=== PATIENT | female | born 1995 | race Caucasian/White ===

== ENCOUNTER 2022-02-26 15:50 | Emergency (ER) | payer BC, SELFPAY ==
[2022-02-26 16:01] VITALS: BP 129/88; PULSE 92; RESP 18; TEMP 36.5; O2SAT 98
--- NOTE | 2022-02-26 16:01 | ED.URI ---
HPI - URI/Sore Throat General Chief Complaint: Upper Respiratory Infection Stated Complaint: Sore Throat Time Seen by Provider: 02/26/22 16:01 History of Present Illness HPI Narrative: Alona Miranda is a 26 yo female with no PMH comes to visit with sore throat for the last few days. She states that she went from feeling practically fine to feel like she is swallowing needles and then 1 afternoon her brother has strep and has not been taking his medication regularly. She rates her pain as an 8 out of 10 should has unknown fever, no nausea vomiting or diarrhea Related Data Allergies Allergy/AdvReac Type Severity Reaction Status Date / Time amoxicillin AdvReac Mild Gastrointestinal Verified 02/26/22 16:15 Upset IV DYE ? Allergy Severe Anaphylactic Uncoded 02/26/22 15:56 Shock SHELLFISH Allergy Severe Anaphylactic Uncoded 02/26/22 15:56 Shock Review of Systems Review of Systems: CONSTITUTIONAL: Denies fever, chills, sweats. EYES: Denies visual changes, redness, discharge. ENT: Denies rhinorrhea, congestion, has sore throat, otalgia. CARDIOVASCULAR: Denies chest pain, palpitations, edema. RESPIRATORY: Denies dyspnea, wheezing, cough GASTROINTESTINAL: Denies abdominal pain, nausea, vomiting, diarrhea. GENITOURINARY: Denies dysuria, hematuria, abnormal discharge SKIN: Denies rash or itching. NEUROLOGIC: Denies numbness, or focal weakness. PSYCHIATRIC: Denies anxiety or depression. PMFSH Comments At time of signature, I agree with nursing past medical, surgical, social and family history. There is no relevant family history pertinent to the presenting complaint. Exam Narrative: GENERAL: This is a well-nourished, well-developed patient, in mild distress. HEAD: normocephalic, atraumatic. EYES:. Sclera clear/white. Vision is grossly intact. EARS: External ears normal, auditory canals clear and without drainage, TMs normal without perforation. Hearing grossly intact. NOSE: External nose normal without nasal discharge, nares without redness, no rhinorrhea. THROAT: Mucous membranes moist, posterior pharynx erythema with no noted exudate NECK: Neck supple, non-tender CARDIOVASCULAR: Regular rate and rhythm without murmurs, gallops, or rubs. RESPIRATORY: Clear to auscultation. Breath sounds equal bilaterally. No wheezes, rales, or rhonchi. GASTROINTESTINAL: Not done SKIN: warm, intact with no suspicious lesions or rash, good texture and turgor. NEURO: awake, alert, and oriented to person, place and time. There were no obvious focal neurologic abnormalities. Steady gait EXTREMITIES: Normal range of motion. BACK: Nontender without deformity Course Course Emergency Course: Patient comes a sore throat, unknown fever so transition from being okay to feeling she swallowing needles Strep test done-negative and sent for culture Because brother has strep and she is in the same household and going to treat with Zithromax as she had an adverse reaction to amoxicillin in June Level of Care: Express Care Visit Vital Signs Vital signs: Vital Signs Temperature 97.7 F 02/26/22 16:01 Pulse Rate 92 02/26/22 16:01 Respiratory Rate 18 02/26/22 16:01 Blood Pressure 129/88 02/26/22 16:01 Pulse Oximetry 98 02/26/22 16:01 Oxygen Delivery Room Air 02/26/22 16:01 Temperature 97.7 F 02/26/22 16:01 Pulse Rate 92 02/26/22 16:01 Respiratory Rate 18 02/26/22 16:01 Blood Pressure 129/88 02/26/22 16:01 Pulse Oximetry 98 02/26/22 16:01 Oxygen Delivery Room Air 02/26/22 16:01 MDM - URI/Sore Throat Differential Diagnosis Differential diagnosis: Likely upper respiratory infection, viral infection, bronchitis, pharyngitis and other Lab Data Labs: Strep Screen Presumptive Negative *(Reference Range: Negative)* Critical Care Time Critical Care Time Critical Care Time: No Discharge Plan Discharge Clinical Impression: Pharyng
== END 2022-02-26 16:25 | disposition home or self-care (01) ==
PROVIDERS: Emergency Provider Nurse Practitioner
DX: J02.9 Acute pharyngitis, unspecified (principal); Z86.16 Personal history of COVID-19
CPT/HCPCS: 87081; 87880; 99213; G0463

== ENCOUNTER 2022-07-20 09:36 | Emergency (ER) | payer BC, SELFPAY ==
[2022-07-20 09:47] VITALS: BP 119/71; PULSE 70; RESP 18; TEMP 36.8; O2SAT 100
--- NOTE | 2022-07-20 10:26 | ED.FEMALEGU ---
HPI - Female Genitourinary General Chief complaint: Urogenital-Female Stated complaint: Possible UTI Source: patient Mode of arrival: ambulatory Limitations: no limitations History of Present Illness HPI Narrative: 26-year-old female presents to [facility] with complaints of burning and frequency with urination, decreased urinary flow and lower abdominal cramping for the past day. Patient reports that she has been increasing her water intake with little relief. Patient denies vaginal discharge. Patient reports that she has had 2 recent new sexual partners, 1 was unprotected. Patient denies history of STDs. Patient has fever, body aches, chills, nausea, vomiting, diarrhea or flank pain. Patient denies history of UTIs. LMP 06/28/2022 MD elicited complaint: dysuria Onset (ago): day(s) (1) Vaginal discharge: none Vaginal bleeding: none Urinary symptoms: Dysuria and Frequency Exacerbating factors: urination Sexual activity: Yes and New Sexual Partners Related Data Allergies Allergy/AdvReac Type Severity Reaction Status Date / Time amoxicillin AdvReac Mild Gastrointestinal Verified 07/20/22 09:51 Upset IV DYE ? Allergy Severe Anaphylactic Uncoded 07/20/22 09:51 Shock SHELLFISH Allergy Severe Anaphylactic Uncoded 07/20/22 09:51 Shock Review of Systems Constitutional: Constitutional: Denies chills and Denies fatigue ENT: Denies vertigo, Denies dizziness, Denies epistaxis, Denies nasal congestion and Denies sore throat Cardiovascular: Cardiovascular: Denies chest pain Respiratory: Respiratory: Denies chest congestion, Denies cough, Denies dyspnea and Denies wheezing Gastrointestinal: Gastrointestinal: Denies diarrhea, Denies nausea and Denies vomiting Genitourinary: Genitourinary: Denies abnormal vaginal bleeding, Reports nocturia, Reports dysuria, Reports pelvic pain, Denies flank pain, Denies urinary incontinence and Denies vaginal discharge Integumentary/Breasts: Skin/Breast: Denies rash Neurologic: Denies vertigo and Denies dizziness PMFSH Comments At time of signature, I agree with nursing past medical, surgical, social and family history. There is no relevant family history pertinent to the presenting complaint. Exam Const: General: healthy appearing, no acute distress and alert Nutritional Appearance: well nourished and obese Orientation/consciousness: patient oriented x3 Limitations: no limitations HENMT: Head: normal to inspection Throat: posterior oropharynx normal and uvula midline Eyes: Conjunctivae: conjunctivae normal Neck: Neck: normal visual inspection Resp: Effort & Inspection: normal respiratory effort and not labored Auscultation: clear to auscultation bilaterally, no crackles, no rales and no rhonchi Cardio: Rate: regular rate Rhythm: regular rhythm Heart sounds: no murmurs GI: Inspection: non-distended GI Palp: Yes Soft to palpation, No Tenderness to palpation present (GI), No Guarding due to palpation present (GI) and No Rigid due to palpation Auscultation: normal bowel sounds : General: Yes bladder normal to palpation and Yes no CVA tenderness Other: vaginal exam deferred Back/Spine/Pelvis: Back: no CVA tenderness Skin: General skin exam: normal color Rashes: no rashes Neuro: General: patient oriented x3 Speech: normal speech Psych: Affect: normal affect Attitude: cooperative Course Course Level of Care: Express Care Visit Vital Signs Vital signs: Vital Signs Temperature 36.8 C 07/20/22 09:47 Pulse Rate 70 07/20/22 09:47 Respiratory Rate 18 07/20/22 09:47 Blood Pressure 119/71 07/20/22 09:47 Pulse Oximetry 100 07/20/22 09:47 Oxygen Delivery Room Air 07/20/22 09:47 Temperature 36.8 C 07/20/22 09:47 Pulse Rate 70 07/20/22 09:47 Respiratory Rate 18 07/20/22 09:47 Blood Pressure 119/71 07/20/22 09:47 Pulse Oximetry 100 07/20/22 09:47 Oxygen Delivery Room Air 07/20/22 09:47 MDM - Female Genitourina
[2022-07-20] MEDS: LIDOCAINE HCL 1% LOCAL INJ 2 ML AMPUL 1.8 ML INFILTRATE (11:08)
[2022-07-20] MEDS: cefTRIAXone 500 MG VIAL IM (11:10)
== END 2022-07-20 11:00 | disposition home or self-care (01) ==
PROVIDERS: Emergency Provider Nurse Practitioner Family
DX: R30.0 Dysuria (principal); Z72.51 High risk heterosexual behavior; Z86.16 Personal history of COVID-19
CPT/HCPCS: 81003; 81025; 87086; 87491; 87591; 87661; 96372; 99214; G0463; J0696

== ENCOUNTER 2022-09-15 08:10 | Emergency (ER) | payer BC, SELFPAY ==
[2022-09-15 08:21] VITALS: BP 133/88; PULSE 76; RESP 20; TEMP 36.4; O2SAT 100
--- NOTE | 2022-09-15 08:50 | ED.URI ---
HPI - URI/Sore Throat General Chief Complaint: Upper Respiratory Infection Stated Complaint: Cough,Congestion Source: patient Mode of arrival: ambulatory Limitations: no limitations History of Present Illness HPI Narrative: 26-year-old female presents to [facility] with complaints of white patches on her tonsils and throat irritation for the past 2 days. Patient reports that she has history of tonsil stones. Patient reports that she also is concerned about a possible UTI or STD. Patient reports that she has had unprotected intercourse with new partners over the past few weeks, last partner was 2 days ago. Patient is not on control. Patient reports that she is scheduled to see her OBGYN and will have full STD testing at that time in a few weeks. Patient denies history of STDs. Patient denies vaginal discharge, abdominal pain, back pain, fever, body aches, chills, nausea, vomiting or diarrhea MD elicited complaint: sore throat Onset (ago): day(s) (2) Able to tolerate fluids by mouth: Yes Exacerbating factors: nothing Relieving factors: nothing Related Data Allergies Allergy/AdvReac Type Severity Reaction Status Date / Time amoxicillin AdvReac Mild Gastrointestinal Verified 07/20/22 09:51 Upset IV DYE ? Allergy Severe Anaphylactic Uncoded 07/20/22 09:51 Shock SHELLFISH Allergy Severe Anaphylactic Uncoded 07/20/22 09:51 Shock Review of Systems Constitutional: Constitutional: Reports chills, Reports fatigue, Reports fever(s) and Reports weakness ENT: Denies vertigo, Denies dizziness, Denies epistaxis, Denies nasal congestion and Reports sore throat Respiratory: Respiratory: Denies chest congestion, Denies cough, Denies dyspnea and Denies wheezing Gastrointestinal: Gastrointestinal: Denies heartburn, Denies diarrhea, Denies nausea and Denies vomiting Genitourinary: Genitourinary: Denies abnormal vaginal bleeding, Denies hematuria, Denies nocturia, Denies genital lesions, Reports dysuria, Denies pelvic pain, Denies flank pain, Denies urinary incontinence and Denies vaginal discharge Integumentary/Breasts: Skin/Breast: Denies rash Neurologic: Denies vertigo, Denies dizziness, Denies syncope and Denies headache(s) PMFSH Comments At time of signature, I agree with nursing past medical, surgical, social and family history. There is no relevant family history pertinent to the presenting complaint. Exam Const: General: healthy appearing and no acute distress Nutritional Appearance: well nourished Orientation/consciousness: patient oriented x3 Limitations: no limitations and No altered mental status HENMT: Head: normal to inspection Ears: external ears normal, TM's normal bilaterally and EAC's normal Face/Nose/Sinus: Normal external nose present and Normal nares present Face and sinus: normal facial exam Mouth: Yes Normal oral and palatal mucosa present Teeth and gingiva: dentition normal Throat: uvula midline Other: Mild erythema noted to posterior pharynx; no exudate or peritonsillar abscess noted Eyes: Conjunctivae: conjunctivae normal Neck: Neck: normal visual inspection Resp: Effort & Inspection: normal respiratory effort and not labored Auscultation: clear to auscultation bilaterally, no crackles, no rales, no rhonchi and no wheezes Cardio: Rate: regular rate Rhythm: regular rhythm Heart sounds: no murmurs GI: Inspection: non-distended GI Palp: Yes Soft to palpation, No Tenderness to palpation present (GI), No Guarding due to palpation present (GI) and No Rigid due to palpation Auscultation: normal bowel sounds : General: Yes bladder normal to palpation Back/Spine/Pelvis: Back: no CVA tenderness Skin: General skin exam: normal color Rashes: no rashes Neuro: General: patient oriented x3 Speech: normal speech Psych: Affect: normal affect Attitude: cooperative Course Course Level of Care: Express Care Visit Vital Signs Vital signs: Vital Signs Temperature 36.4 C 09/15
== END 2022-09-15 09:20 | disposition home or self-care (01) ==
PROVIDERS: Emergency Provider Nurse Practitioner Family
DX: A74.9 Chlamydial infection, unspecified (principal); R30.0 Dysuria; J02.9 Acute pharyngitis, unspecified; R05.9 Cough, unspecified
CPT/HCPCS: 81003; 81025; 87081; 87086; 87491; 87591; 87661; 87880; 99214; G0463

== ENCOUNTER 2022-10-15 14:07 | Emergency (ER) | payer BC, SELFPAY ==
[2022-10-15 14:20] VITALS: BP 113/60; PULSE 59; RESP 16; TEMP 36.2; O2SAT 99
--- NOTE | 2022-10-15 14:35 | ED.URI ---
HPI - URI/Sore Throat General Chief Complaint: Upper Respiratory Infection <Olga Broderick NP - Last Filed: 10/18/22 10:26> Stated Complaint: sorethroat <Olga Broderick NP - Last Filed: 10/18/22 10:26> Time Seen by Provider: 10/15/22 14:25 <Olga Broderick NP - Last Filed: 10/18/22 10:26> Source: patient, RN notes reviewed and old records reviewed <Olga Broderick NP - Last Filed: 10/18/22 10:26> Mode of arrival: ambulatory <Olga Broderick NP - Last Filed: 10/18/22 10:26> Limitations: no limitations <Olga Broderick NP - Last Filed: 10/18/22 10:26> History of Present Illness HPI Narrative: 27 year old female who presents to express care with complaints of sore throat with white patches on tonsils noted. Patient reports that she was treated for Chlamydia recently and wonders if she is reinfected in her throat with chlamydia due to having oral sex. Patient requesting oral swab sent for Chlamydia. Patient reports that she has 2 friends with benefits at this time and throat get irritated when she does deep oral sex. Patient reports that she has appointment with ENT on the of this month. Patient denies any fevers. <Olga Broderick NP - Last Filed: 10/18/22 10:26> MD elicited complaint: sore throat <Olga Broderick NP - Last Filed: 10/18/22 10:26> Pertinent past history: other (treated on 09/15/2022 for Chlamydia) <Olga Broderick NP - Last Filed: 10/18/22 10:26> Onset (ago): day(s) (2) <Olga Broderick NP - Last Filed: 10/18/22 10:26> Pain scale (0-10): 3 <VINCE Beltran Last Filed: 10/18/22 10:26> Able to tolerate fluids by mouth: Yes <Olga Broderick NP - Last Filed: 10/18/22 10:26> Related Data Allergies/Adverse Reactions: Allergies Allergy/AdvReac Type Severity Reaction Status Date / Time amoxicillin AdvReac Mild Gastrointestinal Verified 10/15/22 14:36 Upset IV DYE ? Allergy Severe Anaphylactic Uncoded 10/15/22 14:36 Shock SHELLFISH Allergy Severe Anaphylactic Uncoded 10/15/22 14:36 Shock <Olga Broderick NP - Last Filed: 10/18/22 10:26> Review of Systems Review of Systems: CONSTITUTIONAL: Denies malaise, chills, sweats, or fever. EYES: Denies visual changes, redness, or discharge. ENT: Reports rhinorrhea, congestion, sinus pain,no otalgia positive for sore throat. CARDIOVASCULAR: Denies chest pain, palpitations, or edema. RESPIRATORY: Reports cough.? Denies dyspnea. GASTROINTESTINAL: Denies abdominal pain, nausea, vomiting, diarrhea SKIN: Denies rash or itching. MUSCULOSKELETAL: Denies myalgia. NEUROLOGIC: Denies headache. <Olga Broderick NP - Last Filed: 10/18/22 10:26> All systems reviewed & are unremarkable except as noted in HPI and below <Olga Broderick NP - Last Filed: 10/18/22 10:26> PMFSH Comments At time of signature, agree with nursing past medical, surgical, social and family history. There is no relevant family history pertinent to the presenting complaint <Olga Broderick NP - Last Filed: 10/18/22 10:26> Exam Narrative: GENERAL: Well-appearing, well-nourished, and in no acute distress. HEAD: Normocephalic EYES: PERRLA, conjunctivae clear ENT: Nares clear, turbinates edematous and erythematous, clear discharge. Mucous membranes moist. TM pearly gregory with dull light reflex bilaterally; no tragal tenderness. Oropharynx erythematous without lesions. Tonsils red enlarged and with exudates, appears as some tonsil stones, no drooling, no hoarseness, no trismus, uvula midline. NECK: Supple. No lymphadenopathy CHEST: Clear to auscultation, breath sounds equal. No wheezing, rhonchi, rales, or stridor. No respiratory distress, speaks in full sentences.SAO2 99% on room air HEART: Regular rate and rhythm. No murmur heard. SKIN: Warm, dry, no rash. NEURO: Alert and oriented x3. PSYCH: Normal mood and affect <Olga Broderick
[2022-10-20 09:12] LABS: Reference Lab Test Result Not Detected
== END 2022-10-15 15:44 | disposition home or self-care (01) ==
PROVIDERS: Emergency Provider Registered Nurse
DX: J02.0 Streptococcal pharyngitis (principal)
CPT/HCPCS: 36415; 87081; 87147; 87491; 87880; 99213; G0463

== ENCOUNTER 2022-10-16 13:02 | Emergency (ER) | payer BC, SELFPAY ==
--- NOTE | 2022-10-16 13:14 | ED.FEMALEGU ---
HPI - Female Genitourinary General Chief complaint: Urogenital-Female Stated complaint: Female Urogenital Time Seen by Provider: 10/16/22 13:15 Source: patient Mode of arrival: ambulatory Limitations: no limitations History of Present Illness HPI Narrative: Patient is a 27-year-old female that presents with vaginal burning with urination. Patient had menstrual cycle end 1 week ago. States she had sex on Thursday and noticed vaginal irritation after. Treated herself with Monistat for 3 days, ending on Thursday. States it does not burn her urethra when she pees but marques her external labia. was seen yesterday, Thursday, for sore throat and white patches on throat. Chlamydial throat culture sent, results not back. Patient was seen 09/15 for STD exposure. Waited for results to come back and was then treated for chlamydia with doxycycline 09/18. States she finished entire course of antibiotics. Patient states another partner told her he was positive for chlamydia this week. When like treatment for chlamydia but culture sent off for gonorrhea and Trichomonas as well. Related Data Allergies Allergy/AdvReac Type Severity Reaction Status Date / Time amoxicillin AdvReac Mild Gastrointestinal Verified 10/15/22 14:36 Upset IV DYE ? Allergy Severe Anaphylactic Uncoded 10/15/22 14:36 Shock SHELLFISH Allergy Severe Anaphylactic Uncoded 10/15/22 14:36 Shock Review of Systems Review of Systems: All systems reviewed & are unremarkable except as noted in HPI and below Constitutional: Constitutional: Denies chills, Denies fever(s), Denies headache(s), Denies malaise and Denies weakness Eyes: Eyes: Denies change in vision, Denies eye discharge and Denies irritation ENT: Denies otalgia, Denies headache(s), Denies nasal congestion, Denies nasal discharge, Denies sinus pain and Denies sore throat Cardiovascular: Cardiovascular: Denies chest pain, Denies edema, Denies palpitations and Denies dyspnea Respiratory: Respiratory: Denies cough and Denies dyspnea Gastrointestinal: Gastrointestinal: Denies abdominal pain, Denies diarrhea, Denies nausea and Denies vomiting Genitourinary: Genitourinary: Denies hematuria, Denies dysuria, Denies flank pain, Denies urinary urgency, Reports vaginal discharge, Reports vaginal odor and Reports vaginal pruritus Musculoskeletal: Musculoskeletal: Denies back pain and Denies numbness Integumentary/Breasts: Skin/Breast: Denies pruritus and Denies rash Neurologic: Denies headache(s), Denies numbness and Denies weakness Psychiatric: Psychiatric: Reports no additional psychiatric complaints Endocrine: Endocrine: Denies palpitations PMFSH Comments At time of signature, agree with nursing past medical, surgical, social and family history. There is no relevant family history pertinent to the presenting complaint. Exam Const: General: cooperative, healthy appearing, comfortable, no acute distress and well nourished Nutritional Appearance: well nourished Orientation/consciousness: patient oriented x3 HENMT: Head: normocephalic and atraumatic Ears: external ears normal Face/Nose/Sinus: Normal external nose present, Normal nares present and normal facial exam Face and sinus: normal facial exam Eyes: General: appearance normal, both eyes and all related structures Pupils: Equal, round and reactive pupils present EOM: EOMs intact bilaterally Neck: Neck: normal visual inspection, full ROM and supple Chest: Chest palpation & inspection: normal inspection of the chest Resp: Effort & Inspection: normal respiratory effort and able to speak in complete sentences Cardio: Rate: regular rate Rhythm: regular rhythm GI: Inspection: normal to inspection GI Palp: No abdominal tenderness and Yes Soft to palpation : General: Yes no CVA tenderness OB/external & speculum: Deferred OB/external & speculum exam Manual OB Exam: Deferred manual OB exam Other: Patient defers vaginal exam. States she would ju
[2022-10-16 13:20] VITALS: BP 131/78; PULSE 87; RESP 20; TEMP 36.2; O2SAT 99
== END 2022-10-16 13:44 | disposition home or self-care (01) ==
PROVIDERS: Emergency Provider Nurse Practitioner Family
DX: N89.8 Other specified noninflammatory disorders of vagina (principal); R10.2 Pelvic and perineal pain
CPT/HCPCS: 81003; 87491; 87591; 87661; 99213; G0463

== ENCOUNTER 2022-11-16 18:36 | Emergency (ER) | payer BC, SELFPAY ==
[2022-11-16 18:48] VITALS: BP 133/84; PULSE 100; RESP 16; TEMP 36.4; O2SAT 100
--- NOTE | 2022-11-16 19:12 | ED.GENADULT ---
HPI - General Adult General Chief complaint: Unspecified Stated complaint: Female Urogenital Time Seen by Provider: 11/16/22 18:55 Source: patient and RN notes reviewed Mode of arrival: ambulatory Limitations: no limitations History of Present Illness HPI narrative: Patient presents today reporting lower abdominal cramping since last night. States she is 5-6 weeks with LMP at 10/06/2022. Denies bleeding or vaginal discharge. She currently rates her cramping 09/05. She also states that she was notified today that 1 of her to recent sexual partners has recently tested positive for gonorrhea and she was hoping to get tested. Related Data Allergies Allergy/AdvReac Type Severity Reaction Status Date / Time amoxicillin AdvReac Mild Gastrointestinal Verified 11/16/22 18:50 Upset IV DYE ? Allergy Severe Anaphylactic Uncoded 11/16/22 18:51 Shock SHELLFISH Allergy Severe Anaphylactic Uncoded 11/16/22 18:51 Shock Review of Systems Review of Systems: CONSTITUTIONAL: Denies body aches, fever, chills, or sweats. EYES: Denies visual changes, redness, or discharge. ENT: Denies rhinorrhea, congestion, sore throat, or otalgia. CARDIOVASCULAR: Denies chest pain, palpitations, or edema. RESPIRATORY: Denies cough or dyspnea. GASTROINTESTINAL: Denies nausea, vomiting, or diarrhea.+ lower abdominal cramping GENITOURINARY: Denies dysuria or hematuria. SKIN: Denies rash, itching, or wounds. MUSCULOSKELETAL: Denies back pain, joint pain, or myalgia. NEUROLOGIC: Denies headache, numbness, tingling, or weakness. PSYCH: Denies depression or anxiety. PMFSH Comments At time of signature, I have reviewed and agree with nursing past medical, surgical, social and family history unless otherwise noted. Please see nursing chart for further information. There is no relevant family history pertinent to the presenting complaint Exam Narrative: GENERAL: Well-appearing, well-nourished, and in no acute distress. HEAD: Normocephalic, atraumatic. EYES: EOMI. No redness or drainage. Conjunctivae normal. ENT: Mucous membranes pink and moist. NECK: Normal AROM. CHEST: No respiratory distress. Clear to auscultation. HEART: Regular rate and rhythm. No murmur appreciated. Normal peripheral pulses. ABDOMEN: Soft, nontender, nondistended, normal active bowel sounds. MUSCULOSKELETAL: No bony tenderness. EXTREMITIES: Normal range of motion. No edema. SKIN: Warm, dry, no rash. Capillary refill normal. Normal skin turgor. NEURO: No focal deficits. Alert and oriented x3. Gait steady. PSYCH: Normal affect. No signs of depression or anxiety. Course Course Emergency Course: 1915-discussed with patient that it is recommended that she go to the ER for further evaluation of her lower abdominal cramping. Patient then confessed that she lied about having abdominal cramping because she thought we could provide her with an ultrasound while she was here at Urgent Care getting STI testing here today. She is unsure who the father of her baby is and wanted a precise EDC so she could narrow it down to 1 man. Since she cannot get an ultrasound here to urgent care and is not having cramping, she would still like to get tested and treated for gonorrhea. Sample obtained. Level of Care: Express Care Visit Vital Signs Vital signs: Vital Signs Temperature 97.5 F L 11/16/22 18:48 Pulse Rate 100 11/16/22 18:48 Respiratory Rate 16 11/16/22 18:48 Blood Pressure 133/84 11/16/22 18:48 Pulse Oximetry 100 11/16/22 18:48 Oxygen Delivery Room Air 11/16/22 18:48 Temperature 97.5 F L 11/16/22 18:48 Pulse Rate 100 11/16/22 18:48 Respiratory Rate 16 11/16/22 18:48 Blood Pressure 133/84 11/16/22 18:48 Pulse Oximetry 100 11/16/22 18:48 Oxygen Delivery Room Air 11/16/22 18:48 Reviewed. Pt has been instructed to follow up with her PCP regarding her elevated blood pressure today. Medical Decision Making MDM Narrat
--- NOTE | 2022-11-16 19:13 | PC.NURSE ---
PT REPORTS TO HOME THERAPY CLINICIAN THAT SHE LIED ABOUT ABD CRAMPING TO GET AN ULTRASOUND, PT REPORTS SHE WOULD LIKE TO BE TREATED AND TESTED HERE FOR STI INSTEAD OF GOING TO THE ER. PT IS AWARE THAT COMPLICATIONS TO WITHOUT GOING TO ER FOR FURTHER EVALUATION MAY OCCUR IN [place]. PT STATES SHE IS NOT HAVING ANY PAIN AND WOULD LIKE TO JUST BE TREATED FOR STI.
[2022-11-16] MEDS: cefTRIAXone 500 MG, LIDOCAINE HCL 1% LOCAL INJ 1 ML IM (19:32)
[2022-11-16 19:39] VITALS: BP 130/78; PULSE 88; RESP 16; O2SAT 99
== END 2022-11-16 19:45 | disposition home or self-care (01) ==
PROVIDERS: Emergency Provider Nurse Practitioner
DX: O26.891 Other specified pregnancy related conditions, first trimester (principal); R10.30 Lower abdominal pain, unspecified; Z20.2 Contact with and (suspected) exposure to infections with a predominantly sexual mode of transmission; Z3A.01 Less than 8 weeks gestation of pregnancy
CPT/HCPCS: 87491; 87591; 96372; 99214; G0463; J0696

== ENCOUNTER 2024-10-30 11:36 | Emergency (ER) | payer BC, SELFPAY ==
--- NOTE | 2024-10-30 11:37 | ED_ITS ---
HPI - General Adult General Chief complaint: Nausea/Vomiting/Diarrhea Stated complaint: nausea Time Seen by Provider: 10/30/24 11:37 Source: patient Mode of arrival: ambulatory Limitations: no limitations History of Present Illness HPI narrative: 29-year-old female patient presents to [facility] with complaints of ongoing nausea. Patient states she had some kind of stomach flu/ virus on October 14 and states got over that did not have any issues. Patient states a few days later she ate some [employer] and since then has been waking up with nausea. Patient states that the nausea typically goes away by the afternoon and she is able to eat and needs dinner without any issues by the time she goes but she is feeling much better. Patient states she has tried taking Tums but that has not really helped. Patient states she has been eating yogurt but does not think that that has been helping either. Patient states she did take a test about 2 days ago which was negative. Patient states not exactly sure when her last period was but thinks it was within a month. Related Data Home Medications ?Medication ?Instructions ?Recorded ?Confirmed ?Last Taken ?Type Vitamin PO 10/17/24 10/17/24 Unknown History Allergies Allergy/AdvReac Type Severity Reaction Status Date / Time amoxicillin AdvReac Mild Gastrointestinal Verified 10/30/24 11:37 Upset IV DYE ? Allergy Severe Anaphylactic Uncoded 10/30/24 11:37 Shock SHELLFISH Allergy Severe Anaphylactic Uncoded 10/30/24 11:37 Shock Review of Systems Review of Systems: CONSTITUTIONAL: Denies fever, chills, or sweats. EYES: Denies visual changes, redness, or discharge. ENT: Denies rhinorrhea, congestion, sore throat, or otalgia. CARDIOVASCULAR: Denies chest pain, palpitations, or edema. RESPIRATORY: Denies cough or dyspnea. GASTROINTESTINAL: Denies abdominal pain, Positive nausea, denies vomiting, or diarrhea. GENITOURINARY: Denies dysuria or hematuria. SKIN: Denies rash or itching. MUSCULOSKELETAL: Denies back pain, joint pain, or myalgia. NEUROLOGIC: Denies headache, numbness, or weakness. PSYCHIATRIC: Denies anxiety or depression. [facility] Past Medical History Medical History (Updated 10/30/24 @ 12:17 by TRINI Angel) Skull fracture History of skull fracture at age 8-month-old Anxiety Depression Social History Social History Smoking status: Never smoker Exam Narrative: GENERAL: Well-appearing, well-nourished, and in no acute distress. HEAD: Normocephalic, atraumatic. EYES: PERRLA and EOMI. ENT: Nares clear, no rhinorrhea or epistaxis. Mucous membranes moist. NECK: Supple. No lymphadenopathy CHEST: Clear to auscultation. No respiratory distress. HEART: Regular rate and rhythm. No murmur heard. Normal peripheral pulses. ABDOMEN: Soft, flat, nondistended. No guarding, rebound tenderness, or rigid. patient has slight tenderness noted to the right upper quadrant on palpation. No pulsatilla masses. Hyperactive Bowel sounds present in all four quadrants. No organomegaly. Negative Bradley?s sign. No periumbicial tenderness. No Supra public tenderness or distension. Good femoral pulses bilaterally. No hernia noted. No scars or surface trauma. NEURO: No focal deficits. Alert and oriented x3. Course Course Level of Care: Express Care Visit Vital Signs Vital signs: Vital Signs Temperature 36.3 C L 10/30/24 11:43 Pulse Rate 83 10/30/24 11:43 Respiratory Rate 18 10/30/24 11:43 Blood Pressure 132/75 10/30/24 11:43 Pulse Oximetry 100 10/30/24 11:43 Oxygen Delivery Room Air 10/30/24 11:43 Temperature 36.3 C L 10/30/24 11:43 Pulse Rate 83 10/30/24 11:43 Respiratory Rate 18 10/30/24 11:43 Blood Pressure 132/75 10/30/24 11:43 Pulse Oximetry 100 10/30/24 11:43 Oxygen Delivery Room Air 10/30/24 11:43 vital signs reviewed. Medical Decision Making MDM Narrative Medical decision making narrative: pre care is to obtain a urine dip and a test on patient. Discussed with her I do believe this is most likely recurrent that is causing her frequent nausea. Discussed with her we will discharge her home with some medications to help with the GERD symptoms as well as couple Zofran to help with any breakthrough nausea. Discussed with patient's very important to eat a healthy diet and stay away from fast food. Patient verbalized understanding denies any other questions or concerns at this time. Differential Diagnosis Differential Diagnosis: Differential diagnosis: Uncomplicated lower UTI, uncomplicated UTI, pyelonephritis Appendicitis, ovarian torsion, gallbladder disease, ovarian torsion, pancreatitis, lower lobe pneumonia,AAA, AMI or ACS, DKA, diverticulitis. Vital Signs Vital Signs: Vital Signs Temperature 36.3 C L 10/30/24 11:43 Pulse Rate 83 10/30/24 11:43 Respiratory Rate 18 10/30/24 11:43 Blood Pressure 132/75 10/30/24 11:43 Pulse Oximetry 100 10/30/24 11:43 Oxygen Delivery Room Air 10/30/24 11:43 Temperature 36.3 C L 10/30/24 11:43 Pulse Rate 83 10/30/24 11:43 Respiratory Rate 18 10/30/24 11:43 Blood Pressure 132/75 10/30/24 11:43 Pulse Oximetry 100 10/30/24 11:43 Oxygen Delivery Room Air 10/30/24 11:43 Critical Care Time Critical Care Time Critical Care Time: No Discharge Plan Discharge Clinical Impression: Chronic GERD, Nausea Patient Disposition: Home Condition: Stable Instructions: Antibiotic Form, GERD (Gastroesophageal Reflux Disease) (ED) Additional Instructions: Gastroesophageal reflux disease (GERD) is a backflow of acid from the stomach into the swallowing tube (esophagus). Home care These home care steps can help you manage GERD: Maintain a healthy weight. Get help to lose any extra pounds. Avoid lying down after meals. Avoid eating late at night. Elevate the head of your bed by 6 inches. You can do this by placing wooden blocks or bed risers under the head of your bed. Avoid wearing tight-fitting clothes. Avoid foods that might irritate your stomach, such as the following: Alcohol Fat Chocolate Caffeine Spearmint or peppermint Begin an exercise program. You can benefit from simple activities, such as walking or gardening. Break the smoking habit. Enroll in a stop-smoking program to improve your chances of success. Limit alcohol intake to no more than 2 drinks a day. Take your medicines exactly as directed. Don?t skip doses. Avoid [id number] nonsteroidal anti-inflammatory medicines, such as aspirin and ibuprofen, unless recommended by your healthcare provider for certain conditions. If possible, avoid nitrates (heart medicines, such as nitroglycerin and isosorbide dinitrate ). Follow-up with your primary doctor in the next 5-7 days as needed. When to call the healthcare provider Call your healthcare provider immediately if you have any of the following: Trouble swallowing Pain when swallowing Feeling of food caught in your chest or throat Pain in the neck, chest, or back Heartburn that causes you to vomit Vomiting blood Black or tarry stools (from digested blood) More saliva (watering of the mouth) than usual Weight loss of more than 3% to 5% of your total body weight in a month Hoarseness or sore throat that won?t go away Choking, coughing, or wheezing Patient Language: Korean Prescriptions: New omeprazole 20 mg capsule,delayed release(DR/EC) 20 mg PO DAILY Qty: 30 0RF famotidine [Pepcid] 20 mg tablet 20 mg PO HS Qty: 30 0RF ondansetron 4 mg tablet,disintegrating 4 mg PO Q8H PRN (Reason: nausea and vomiting) Qty: 7 0RF No Action Vitamin PO Follow-up/Referrals: Hui Bee DO [Primary Care Provider] - Time of Disposition: 12:20
--- OUTSIDE RECORDS SUMMARY | 2024-10-30 11:37 | XMS_ITS | Encounter Summary ---
Author Organization [facility] Address [address] [place] [address] Care Team Providers Care Rolling Machine Operator Name Role Phone Viktoria Nguyen MD Primary Care Provider Encounter Details Date Type Department Care Team (Late st Contact Info) Description 08/27/1998 Outpatient Historical [facility] Pediatrics [facility] [address] [place] [address] Viktoria Nguyen MD [address] [place] [address] Social History Tobacco Use Types Packs/Day Years Used Date Smoking Tobacco: Never Assessed Comments Unknown Sex and Gender Information Value Date Recorded Sex Assigned at Not on file Legal Sex Female 3:57 AM REPAIRER SASH AND DOOR Gender Identity Not on file Sexual Orientation Not on file documented as of this encounter Plan of Treatment Not on file documented as of this encounter Visit Diagnoses Not on filedocumented in this encounter Care Teams Rolling Machine Operator Relationship Specialty Start Date End Date Viktoria Nguyen MD [address] [place] [address] PCP - General 06/02/02 documented as of this encounter
--- OUTSIDE RECORDS SUMMARY | 2024-10-30 11:37 | XMS_ITS | Encounter Summary ---
Author Organization [facility] Address [address] [place] [address] Care Team Providers Care Morgue Technician Name Role Phone Viktoria Nguyen MD Primary Care Provider [phone] Encounter Details Date Type Department Care Team (Late st Contact Info) Description 11/05/1998 Outpatient Historical [facility] Pediatrics [facility] [address] [place] [address] Viktoria Nguyen MD [address] [place] [address] Social History Tobacco Use Types Packs/Day Years Used Date Smoking Tobacco: Never Assessed Comments Unknown Sex and Gender Information Value Date Recorded Sex Assigned at Not on file Legal Sex Female 3:57 AM RESIN SHAVER Gender Identity Not on file Sexual Orientation Not on file documented as of this encounter Plan of Treatment Not on file documented as of this encounter Visit Diagnoses Not on filedocumented in this encounter Care Teams Morgue Technician Relationship Specialty Start Date End Date Viktoria Nguyen MD [address] [place] [address] PCP - General 06/02/02 documented as of this encounter
--- OUTSIDE RECORDS SUMMARY | 2024-10-30 11:37 | XMS_ITS | Encounter Summary ---
Author Organization [facility] Address [address] [place] [address] Care Team Providers Care Fertilizer Applicator Name Role Phone Viktoria Nguyen MD Primary Care Provider [phone] Encounter Details Date Type Department Care Team (Late st Contact Info) Description 10/19/1998 Outpatient Historical [facility] Pediatrics [facility] [address] [place] [address] Viktoria Nguyen MD [address] [place] [address] Social History Tobacco Use Types Packs/Day Years Used Date Smoking Tobacco: Never Assessed Comments Unknown Sex and Gender Information Value Date Recorded Sex Assigned at Not on file Legal Sex Female 3:57 AM ALTERATION HAND Gender Identity Not on file Sexual Orientation Not on file documented as of this encounter Plan of Treatment Not on file documented as of this encounter Visit Diagnoses Not on filedocumented in this encounter Care Teams Fertilizer Applicator Relationship Specialty Start Date End Date Viktoria Nguyen MD [address] [place] [address] PCP - General 06/02/02 documented as of this encounter
--- OUTSIDE RECORDS SUMMARY | 2024-10-30 11:37 | XMS_ITS | Encounter Summary ---
Author Organization [facility] Address [address] [place] [address] Care Team Providers Care Safety Professional Name Role Phone Viktoria Nguyen MD Primary Care Provider [phone] Encounter Details Date Type Department Care Team (Late st Contact Info) Description 11/10/[address] [facility] Pediatrics [facility] [address] [place] [address] Viktoria Nguyen MD [address] [place] [address] Social History Tobacco Use Types Packs/Day Years Used Date Smoking Tobacco: Never Assessed Comments Unknown Sex and Gender Information Value Date Recorded Sex Assigned at Not on file Legal Sex Female 3:57 AM BLIND ESCORT Gender Identity Not on file Sexual Orientation Not on file documented as of this encounter Plan of Treatment Not on file documented as of this encounter Visit Diagnoses Not on filedocumented in this encounter Care Teams Safety Professional Relationship Specialty Start Date End Date Viktoria Nguyen MD [address] [place] [address] PCP - General 06/02/02 documented as of this encounter
--- OUTSIDE RECORDS SUMMARY | 2024-10-30 11:37 | XMS_ITS | Clinical Summary ---
Author Organization [facility] Address [address] [place] [address] Care Team Providers Care Lockstitch Sleeve Maker Name Role Phone Unavailable Primary Care Provider Unavailabl e Source Comments [facility] [employer],non-owned Affiliates and Associated Physician Practices is amultiple site organization consisting of ambulatory clinics and hospital sitesin [place], [place], [place] and [place]. This disclosure is being madepursuant to the Care Everywhere program and may not contain all information available regarding this patient. Last updated 18.[facility] [employer] Social History Tobacco Use Types Packs/Day Years Used Date Smoking Tobacco: Never Assessed Comments Unknown Sex and Gender Information Value Date Recorded Sex Assigned at Not on file Legal Sex Female 5:11 PM CDT Gender Identity Not on file Sexual Orientation Not on file Plan of Treatment Health Maintenance Due Date Last Done Comments HIV SCREENING 2012 HEPATITIS C SCREENING 09/25/2015 DTAP/TDAP/TD VACCINES (1 - Tdap) 2016 HEPATITIS B VACCINE (1 of 3 - 19+ 3-dose series) 2016 COVID-19 VACCINE ( - 2023-2 5 season) 2024 DEPRESSION SCREENING 06/29/2024 INFLUENZA VACCINE (Season Ended) 2025 ZOSTER VACCINE (1 of 2) 09/30/2047 HIB VACCINE Aged Out No longer eligi ble based on patient's age to complete this topic HPV VACCINE Aged Out No longer eligi ble based on patient's age to complete this topic MENINGOCOCCAL (Group B) VACC INE SHARED DECISION-MAKING Aged Out No longer eligibl e based on patient's age to complete this topic MENINGOCOCCAL GROUPS A/C/Y/W VACCINE Aged Out No longer eligible b ased on patient's age to complete this topic PNEUMOCOCCAL VACCINE Aged Out No long er eligible based on patient's age to complete this [place] [address] [facility]
--- OUTSIDE RECORDS SUMMARY | 2024-10-30 11:37 | XMS_ITS | Encounter Summary ---
Author Organization [facility] Address [address] [place] [address] Care Team Providers Care Drapery Operator Name Role Phone Viktoria Nguyen MD Primary Care Provider [phone] Encounter Details Date Type Department Care Team (Late st Contact Info) Description 10/04/1998 Outpatient Historical [facility] Pediatrics [facility] [address] [place] [address] Viktoria Nguyen MD [address] [place] [address] Social History Tobacco Use Types Packs/Day Years Used Date Smoking Tobacco: Never Assessed Comments Unknown Sex and Gender Information Value Date Recorded Sex Assigned at Not on file Legal Sex Female 3:57 AM KILN TESTER Gender Identity Not on file Sexual Orientation Not on file documented as of this encounter Plan of Treatment Not on file documented as of this encounter Visit Diagnoses Not on filedocumented in this encounter Care Teams Drapery Operator Relationship Specialty Start Date End Date Viktoria Nguyen MD [address] [place] [address] PCP - General 06/02/02 documented as of this encounter
--- OUTSIDE RECORDS SUMMARY | 2024-10-30 11:37 | XMS_ITS | Encounter Summary ---
Author Organization [facility] Address [address] [place] [address] Care Team Providers Care Veterans Service Representative Name Role Phone Viktoria Nguyen MD Primary Care Provider [phone] Encounter Details Date Type Department Care Team (Late st Contact Info) Description 05/11/1998 Outpatient Historical [facility] Pediatrics [facility] [address] [place] [address] Viktoria Nguyen MD [address] [place] [address] Social History Tobacco Use Types Packs/Day Years Used Date Smoking Tobacco: Never Assessed Comments Unknown Sex and Gender Information Value Date Recorded Sex Assigned at Not on file Legal Sex Female 3:57 AM CONSULTING ANALYST Gender Identity Not on file Sexual Orientation Not on file documented as of this encounter Plan of Treatment Not on file documented as of this encounter Visit Diagnoses Not on filedocumented in this encounter Care Teams Veterans Service Representative Relationship Specialty Start Date End Date Viktoria Nguyen MD [address] [place] [address] PCP - General 06/02/02 documented as of this encounter
--- OUTSIDE RECORDS SUMMARY | 2024-10-30 11:38 | XMS_ITS | Encounter Summary ---
Author Organization [facility] Address [address] [place] [address] Care Team Providers Care Rn Critical Care Name Role Phone Viktoria Nguyen MD Primary Care Provider [phone] Encounter Details Date Type Department Care Team (Late st Contact Info) Description 03/24/2000 Outpatient Historical [facility] Pediatrics [facility] [address] [place] [address] Viktoria Nguyen MD [address] [place] [address] Social History Tobacco Use Types Packs/Day Years Used Date Smoking Tobacco: Never Assessed Comments Unknown Sex and Gender Information Value Date Recorded Sex Assigned at Not on file Legal Sex Female 3:57 AM TICKET SPECULATOR Gender Identity Not on file Sexual Orientation Not on file documented as of this encounter Plan of Treatment Not on file documented as of this encounter Visit Diagnoses Not on filedocumented in this encounter Care Teams Rn Critical Care Relationship Specialty Start Date End Date Viktoria Nguyen MD [address] [place] [address] PCP - General 06/02/02 documented as of this encounter
--- OUTSIDE RECORDS SUMMARY | 2024-10-30 11:38 | XMS_ITS | Referral Summary ---
Author Organization [facility] C Address [address] [place] [address] Care Team Providers Care Redevelopment Specialist Name Role Phone No, Physician Primary Care Provider [phone] Allergies Active Allergy Reactions Criticality Noted Date Comments Amoxicillin Hives Medium 11/29/2022 Shellfish Containing Products Anaphylaxis High 04/03 Medications vit-iron fum-folic ( Vitamin) 27 mg iron- 800 mcg tablet Active metoclopramide (REGLAN) 10 mg tablet Take 1 tablet (10 mg total) by mouth 4 (four) times a day before meals and nightly 120 tablet 1 09/09/2023 Active Active Problems Problem Noted Date Diagnosed Date 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 05/01/2023 Obesity with body mass index 30 or greater 03/17 Immunizations Immunization Administration Dates Next Due HPV, Quadrivalent 03/17/2015,07/30/2011 Hep A, Unspecified 01/18/2008 Meningococcal MCV4P (Menactra) 03/17/2015,2011 Tdap 01/18/2008 Social History Tobacco Use Types Packs/Day Years Used Date Smoking Tobacco: Never Tobacco Cessation:Counseling Given: Not Answered PHQ-2 Answer Date Recorded PHQ-2 Total Score (If total score is 3 or more points, staff should administer the PHQ-9) 0 03/26/2023 [place] Depression Scale Answer Date Recorded [place] Depression Scale Total 20 09/04/2023 The thought of harming myself has occurred to me . Never 09/04/2023 Comments No Sex and Gender Information Value Date Recorded Sex Assigned at Not on file Legal Sex Female 5:15 AM BUTTON GRADER Gender Identity Not on file Sexual Orientation Not on file Last Filed Vital Signs Vital Sign Reading Time Taken Comments Blood Pressure 126/74 09/28/2023 1:25 PM CDT Pulse - - Temperature - - Respiratory Rate - - Oxygen Saturation - - Inhaled Oxygen Concentration - - Weight 131.5 kg (290 lb) 11/02/2023 1:33 PM CDT Height 166.4 cm (5' 5.5 ) 11/02/2023 1:33 PM CDT Body Mass Index 47.52 11/02/2023 1:33 PM CDT Plan of Treatment Not on file Procedures Procedure Name Priority Date/Time Associated Diagnosis Comments HEPATITIS C ANTIBODY Routine 12/08/2022 6:20 PM CDT Secondary amenorrhea PAP WITH REFLEX TO HIGH RISK HPV Routine 12/08/2022 4:57 PM CDT Screening for malignant neoplasm of cervix from Last 3 Months or Most Recently Relevant to Health Maintenance Results * Hepatitis C antibody (12/08/2022 6:20 PM CDT) Hep C Ab Nonreactive [facility] Comment: Interpretive Data Nonreactive: Antibodies to HCV not detected. Does NOT exclude the possibility of recent exposure to HCV. Equivocal: Equivocal for HCV antibodies. Supplemental molecular testing will be automatically performed to determine infection status in accordance with current CDC screening recommendations. Reactive: Positive for HCV antibodies. This may represent current or past HCV infection. Supplemental molecular testing will be automatically performed to determine current infection status in accordance with current CDC screening recommendations. Interpretive data was last revised on 2019. Blood 12/08/2022 6:20 PM CDT 12/08/2022 6:20 PM CDT Gabe Osorio IV, MD LAB MICROBIOLOGY - GEN ERAL ORDERABLES Edited Result - Final [facility] [address] Department [place] [address] * (ABNORMAL) Pap with reflex to High Risk HPV (12/08/2022 4:57 PM CDT) Thin prep (Pap test) 12/08/2022 4:57 PM CDT 12/12/2022 2:16 PM CDT Narrative PATHOLOGY [facility] - 12/17/2022 4:44 PM CDT EPIC results best viewed via link to PDF [address] [address] Tele: Selene Florez MD - Early Childhood Services Coordinator CYTOLOGY REPORT Note to Patients: This report may contain a detailed description of human tissue sent by a health care provider to the laboratory for pathologic evaluation. The content of this report is essential for diagnosis and may provide important critical findings. This information may be unfamiliar to patients to review without a medical professional present. It is advised that the patient review this report in the presence of a health care provider who can answer questions and explain the details. Patient Name: ALONA MCKEON Address: [address] [place] [address] Gender: F : 1995 (Age: 27) Service: Location: N : [id number] [facility] #: [id number] Patient Type: [facility] [place] Taken: 12/08/2022 Reported: 12/17/2022 Physician(s): Osvaldo Osorio M.D. FINAL DIAGNOSIS: SOURCE OF SPECIMEN - ThinPrep Pap w/ reflex HPV: STATEMENT OF ADEQUACY Source: Cervical/Endocervical - Satisfactory for interpretation - Endocervical/Transformation zone component absent or insufficient - Case screened using computer assisted imaging technology and manually re- screened by a address change clerk. GENERAL CATEGORIZATION: - Epithelial cell abnormality INTERPRETATION: - Atypical squamous cells of undetermined significance (ASCUS) - Specimen sent for reflex HPV testing. [facility]/12/17/2022 16:44Examining Pathologist: Lottie Simpson M.D. Mallory Telles M.S., CT (ASCP) Report Reviewed and Electronically Signed By Lottie Simpson M.D.Clerical Data Follow A; [id number], 02353 Z12.4 ADDENDA: Addendum Comment Ancillary Testing: HPV High Risk Group (16, 18, 31, 33, 35, 39, 45, 51, 52, 56, 58, 59, 66 and 68) - Detected Reference Range: Not Detected This test was performed using the HARSHAL [address] SABINA Simon (ASCP) Date Ordered: 12/17/2022 Status: Signed Out Date Complete: 12/19/2022 By: SABINA Simon (ASCP) Date Reported: 12/19/2022 CLINICAL DIAGNOSIS AND HISTORY Last Menstrual Period: 10/06/2022 Menstrual History: REPORT IMAGES AND/OR SCANNED DOCUMENTS ONLY VIEWABLE IN PDF FORMAT The Pap test is a screening test used to aid in the detection of cervical cancer and its precursors. It should not be the sole means by which malignant and premalignant lesions are diagnosed. Both false negative and false positive results may occur. It also has poor sensitivity for the detection of endometrial lesions and should not be used to evaluate suspected endometrial abnormalities. For these reasons it is most important to obtain Pap tests at regular intervals, as recommended by your physician or nurse practitioner. Gabe Osorio IV, MD LAB CYTOLOGY ORDERABLE S Final Result PATHOLOGY [facility] Laboratory Receiving [address] [place] [address] from Last 3 Months or Most Recently Relevant to Health [place] [phone] [facility] [place] [phone] [place] [phone] Care Teams Redevelopment Specialist Relationship Specialty Start Date End Date No, Physician PCP - General 11/07/22
--- OUTSIDE RECORDS SUMMARY | 2024-10-30 11:38 | XMS_ITS | Encounter Summary ---
Author Organization [facility] Address [address] [place] [address] Care Team Providers Care Silk Winding Machine Operator Name Role Phone Viktoria Nguyne MD Primary Care Provider [phone] Encounter Details Date Type Department Care Team (Late st Contact Info) Description 06/01/1999 Outpatient Historical [facility] Pediatrics [facility] [address] [place] [address] [place] [address] Fozia Harrison MD [address] [facility] [address] [place] [address] Social History Tobacco Use Types Packs/Day Years Used Date Smoking Tobacco: Never Assessed Comments Unknown Sex and Gender Information Value Date Recorded Sex Assigned at Not on file Legal Sex Female 3:57 AM ENTRY LEVEL SALES ASSOCIATE Gender Identity Not on file Sexual Orientation Not on file documented as of this encounter Plan of Treatment Not on file documented as of this encounter Visit Diagnoses Not on filedocumented in this encounter Care Teams Silk Winding Machine Operator Relationship Specialty Start Date End Date Viktoria Nguyen MD [address] [place] [address] PCP - General 06/02/02 documented as of this encounter
--- OUTSIDE RECORDS SUMMARY | 2024-10-30 11:38 | XMS_ITS | Encounter Summary ---
Author Organization [facility] Address [address] [place] [address] Care Team Providers Care Reinforcing Iron Worker Helper Name Role Phone iVktoria Nguyen MD Primary Care Provider [phone] Encounter Details Date Type Department Care Team (Late st Contact Info) Description 06/09/2006 Outpatient Historical [facility] Pediatrics [facility] [address] [place] [address] Viktoria Nguyen MD [address] [place] [address] Social History Tobacco Use Types Packs/Day Years Used Date Smoking Tobacco: Never Assessed Comments Unknown Sex and Gender Information Value Date Recorded Sex Assigned at Not on file Legal Sex Female 3:57 AM OPTOMETRY ASSISTANT Gender Identity Not on file Sexual Orientation Not on file documented as of this encounter Plan of Treatment Not on file documented as of this encounter Visit Diagnoses Not on filedocumented in this encounter Care Teams Reinforcing Iron Worker Helper Relationship Specialty Start Date End Date Viktoria Nguyen MD [address] [place] [address] PCP - General 06/02/02 documented as of this encounter
--- OUTSIDE RECORDS SUMMARY | 2024-10-30 11:38 | XMS_ITS | Encounter Summary ---
Author Organization [facility] Address [address] [place] [address] Care Team Providers Care Mortgage Loan Coordinator Name Role Phone Viktoria Nguyen MD Primary Care Provider [phone] Encounter Details Date Type Department Care Team (Late st Contact Info) Description 01/16/2003 Outpatient Historical [facility] Pediatrics [facility] [address] [place] [address] Viktoria Nguyen MD [address] [place] [address] Social History Tobacco Use Types Packs/Day Years Used Date Smoking Tobacco: Never Assessed Comments Unknown Sex and Gender Information Value Date Recorded Sex Assigned at Not on file Legal Sex Female 3:57 AM CHIEF MEDICAL PHYSICIST Gender Identity Not on file Sexual Orientation Not on file documented as of this encounter Plan of Treatment Not on file documented as of this encounter Visit Diagnoses Not on filedocumented in this encounter Care Teams Mortgage Loan Coordinator Relationship Specialty Start Date End Date Viktoria Nguyen MD [address] [place] [address] PCP - General 06/02/02 documented as of this encounter
--- OUTSIDE RECORDS SUMMARY | 2024-10-30 11:38 | XMS_ITS | Encounter Summary ---
Author Organization [facility] Address [address] [place] [address] Care Team Providers Care Decatizer Name Role Phone Viktoria Nguyen MD Primary Care Provider [phone] Encounter Details Date Type Department Care Team (Late st Contact Info) Description 08/02/2001 Outpatient Historical [facility] Pediatrics [facility] [address] [place] [address] Viktoria Nguyen MD [address] [place] [address] Social History Tobacco Use Types Packs/Day Years Used Date Smoking Tobacco: Never Assessed Comments Unknown Sex and Gender Information Value Date Recorded Sex Assigned at Not on file Legal Sex Female 3:57 AM CLERICAL COORDINATOR Gender Identity Not on file Sexual Orientation Not on file documented as of this encounter Plan of Treatment Not on file documented as of this encounter Visit Diagnoses Not on filedocumented in this encounter Care Teams Decatizer Relationship Specialty Start Date End Date Viktoria Nguyen MD [address] [place] [address] PCP - General 06/02/02 documented as of this encounter
--- OUTSIDE RECORDS SUMMARY | 2024-10-30 11:38 | XMS_ITS | Encounter Summary ---
Author Organization [facility] Address [address] [place] [address] Care Team Providers Care Drapery Head Former Name Role Phone Viktoria Nguyen MD Primary Care Provider [phone] Encounter Details Date Type Department Care Team (Late st Contact Info) Description 06/11/2001 Outpatient Historical [facility] Pediatrics [facility] [address] [place] [address] Viktoria Nguyen MD [address] [place] [address] Social History Tobacco Use Types Packs/Day Years Used Date Smoking Tobacco: Never Assessed Comments Unknown Sex and Gender Information Value Date Recorded Sex Assigned at Not on file Legal Sex Female 3:57 AM ACCOUNTANT HELPER Gender Identity Not on file Sexual Orientation Not on file documented as of this encounter Plan of Treatment Not on file documented as of this encounter Visit Diagnoses Not on filedocumented in this encounter Care Teams Drapery Head Former Relationship Specialty Start Date End Date Viktoria Nguyen MD [address] [place] [address] PCP - General 06/02/02 documented as of this encounter
--- OUTSIDE RECORDS SUMMARY | 2024-10-30 11:38 | XMS_ITS | Encounter Summary ---
Author Organization [facility] Address [address] [place] [address] Care Team Providers Care Survey Technician Name Role Phone Viktoria Nguyen MD Primary Care Provider [phone] Encounter Details Date Type Department Care Team (Late st Contact Info) Description 10/17/2002 Outpatient Historical [facility] Pediatrics [facility] [address] [place] [address] Viktoria Nguyen MD [address] [place] [address] Social History Tobacco Use Types Packs/Day Years Used Date Smoking Tobacco: Never Assessed Comments Unknown Sex and Gender Information Value Date Recorded Sex Assigned at Not on file Legal Sex Female 3:57 AM MANAGER Gender Identity Not on file Sexual Orientation Not on file documented as of this encounter Plan of Treatment Not on file documented as of this encounter Visit Diagnoses Not on filedocumented in this encounter Care Teams Survey Technician Relationship Specialty Start Date End Date Viktoria Nguyen MD [address] [place] [address] PCP - General 06/02/02 documented as of this encounter
--- OUTSIDE RECORDS SUMMARY | 2024-10-30 11:38 | XMS_ITS | Encounter Summary ---
Author Organization [facility] Address [address] [place] [address] Care Team Providers Care Aluminum Molding Machine Operator Name Role Phone Viktoria Nguyen MD Primary Care Provider [phone] Encounter Details Date Type Department Care Team (Late st Contact Info) Description 09/05/1999 Outpatient Historical [facility] Pediatrics [facility] [address] [place] [address] Viktoria Nguyen MD [address] [place] [address] Social History Tobacco Use Types Packs/Day Years Used Date Smoking Tobacco: Never Assessed Comments Unknown Sex and Gender Information Value Date Recorded Sex Assigned at Not on file Legal Sex Female 3:57 AM LIVER TRIMMER Gender Identity Not on file Sexual Orientation Not on file documented as of this encounter Plan of Treatment Not on file documented as of this encounter Visit Diagnoses Not on filedocumented in this encounter Care Teams Aluminum Molding Machine Operator Relationship Specialty Start Date End Date Viktoria Nguyen MD [address] [place] [address] PCP - General 06/02/02 documented as of this encounter
--- OUTSIDE RECORDS SUMMARY | 2024-10-30 11:38 | XMS_ITS | Encounter Summary ---
Author Organization [facility] Address [address] [place] [address] Care Team Providers Care Gm Video Name Role Phone Viktoria Nguyen MD Primary Care Provider [phone] Encounter Details Date Type Department Care Team (Late st Contact Info) Description 05/18/2001 Outpatient Historical [facility]s [facility] [address] [place] [address] Viktoria Nguyen MD [address] [place] [address] Social History Tobacco Use Types Packs/Day Years Used Date Smoking Tobacco: Never Assessed Comments Unknown Sex and Gender Information Value Date Recorded Sex Assigned at Not on file Legal Sex Female 3:57 AM JBOSS DEVELOPER Gender Identity Not on file Sexual Orientation Not on file documented as of this encounter Plan of Treatment Not on file documented as of this encounter Visit Diagnoses Not on filedocumented in this encounter Care Teams Gm Video Relationship Specialty Start Date End Date Viktoria Nguyen MD [address] [place] [address] PCP - General 06/02/02 documented as of this encounter
--- OUTSIDE RECORDS SUMMARY | 2024-10-30 11:38 | XMS_ITS | Encounter Summary ---
Author Organization [facility] Address [address] [place] [address] Care Team Providers Care Coal Shoveler Name Role Phone Viktoria Nguyen MD Primary Care Provider [phone] Encounter Details Date Type Department Care Team (Late st Contact Info) Description 05/12/2002 Outpatient Historical [facility] Pediatrics [facility] [address] [place] [address] Viktoria Nguyen MD [address] [place] [address] Social History Tobacco Use Types Packs/Day Years Used Date Smoking Tobacco: Never Assessed Comments Unknown Sex and Gender Information Value Date Recorded Sex Assigned at Not on file Legal Sex Female 3:57 AM GENERAL LEDGER ACCOUNTANT Gender Identity Not on file Sexual Orientation Not on file documented as of this encounter Plan of Treatment Not on file documented as of this encounter Visit Diagnoses Not on filedocumented in this encounter Care Teams Coal Shoveler Relationship Specialty Start Date End Date Viktoria Nguyen MD [address] [place] [address] PCP - General 06/02/02 documented as of this encounter
--- OUTSIDE RECORDS SUMMARY | 2024-10-30 11:38 | XMS_ITS | Encounter Summary ---
Author Organization [facility] Address [address] [place] [address] Care Team Providers Care Observation Nurse Name Role Phone Viktoria Nguyen MD Primary Care Provider [phone] Encounter Details Date Type Department Care Team (Late st Contact Info) Description 05/28/2001 Outpatient Historical [facility] Pediatrics [facility] [address] [place] [address] Viktoria Nguyen MD [address] [place] [address] Social History Tobacco Use Types Packs/Day Years Used Date Smoking Tobacco: Never Assessed Comments Unknown Sex and Gender Information Value Date Recorded Sex Assigned at Not on file Legal Sex Female 3:57 AM REQUIREMENTS MANAGER Gender Identity Not on file Sexual Orientation Not on file documented as of this encounter Plan of Treatment Not on file documented as of this encounter Visit Diagnoses Not on filedocumented in this encounter Care Teams Observation Nurse Relationship Specialty Start Date End Date Viktoria Nguyen MD [address] [place] [address] PCP - General 06/02/02 documented as of this encounter
--- OUTSIDE RECORDS SUMMARY | 2024-10-30 11:38 | XMS_ITS | Encounter Summary ---
Author Organization [facility] Address [address] [place] [address] Care Team Providers Care Texturing Machine Fixer Name Role Phone Viktoria Nguyen MD Primary Care Provider [phone] Encounter Details Date Type Department Care Team (Late st Contact Info) Description 02/23/2003 Outpatient Historical [facility] Pediatrics [facility] [address] [place] [address] Viktoria Nguyen MD [address] [place] [address] Social History Tobacco Use Types Packs/Day Years Used Date Smoking Tobacco: Never Assessed Comments Unknown Sex and Gender Information Value Date Recorded Sex Assigned at Not on file Legal Sex Female 3:57 AM FUR CLIPPER Gender Identity Not on file Sexual Orientation Not on file documented as of this encounter Plan of Treatment Not on file documented as of this encounter Visit Diagnoses Not on filedocumented in this encounter Care Teams Texturing Machine Fixer Relationship Specialty Start Date End Date Viktoria Nguyen MD [address] [place] [address] PCP - General 06/02/02 documented as of this encounter
--- OUTSIDE RECORDS SUMMARY | 2024-10-30 11:38 | XMS_ITS | Encounter Summary ---
Author Organization [facility] Address [address] [place] [address] Care Team Providers Care Manager Resort Name Role Phone Viktoria Nguyen MD Primary Care Provider [phone] Encounter Details Date Type Department Care Team (Late st Contact Info) Description 07/25/2003 Outpatient Historical [facility] Pediatrics [facility] [address] [place] [address] Viktoria Nguyen MD [address] [place] [address] Social History Tobacco Use Types Packs/Day Years Used Date Smoking Tobacco: Never Assessed Comments Unknown Sex and Gender Information Value Date Recorded Sex Assigned at Not on file Legal Sex Female 3:57 AM TOURIST GUIDE Gender Identity Not on file Sexual Orientation Not on file documented as of this encounter Plan of Treatment Not on file documented as of this encounter Visit Diagnoses Not on filedocumented in this encounter Care Teams Manager Resort Relationship Specialty Start Date End Date Viktoria Nguyen MD [address] [place] [address] PCP - General 06/02/02 documented as of this encounter
--- OUTSIDE RECORDS SUMMARY | 2024-10-30 11:38 | XMS_ITS | Encounter Summary ---
Author Organization [facility] Address [address] [place] [address] Care Team Providers Care Golf Cart Mechanic Name Role Phone Viktoria Nguyen MD Primary Care Provider [phone] Encounter Details Date Type Department Care Team (Late st Contact Info) Description 06/16/1998 Outpatient Historical [facility] Viktoria Nguyen MD [address] [place] [address] Head injury, unspecified (Primary Dx) Social History Tobacco Use Types Packs/Day Years Used Date Smoking Tobacco: Never Assessed Comments Unknown Sex and Gender Information Value Date Recorded Sex Assigned at Not on file Legal Sex Female 3:57 AM NUT DEHYDRATOR OPERATOR Gender Identity Not on file Sexual Orientation Not on file documented as of this encounter Plan of Treatment Not on file documented as of this encounter Visit Diagnoses Diagnosis Head injury, unspecified- Primary documented in this encounter Care Teams Golf Cart Mechanic Relationship Specialty Start Date End Date Viktoria Nguyen MD [address] [place] [address] PCP - General 06/02/02 documented as of this encounter
--- OUTSIDE RECORDS SUMMARY | 2024-10-30 11:38 | XMS_ITS | Encounter Summary ---
Author Organization [facility] Address [address] [place] [address] Care Team Providers Care Spice Miller Name Role Phone Drake Christianson MD Primary Care Provider [phone] Encounter Details Date Type Department Care Team (Late st Contact Info) Description 12/10/2007 Outpatient Historical [facility] Drake Christianson MD [address] [place] [address] Abdominal Pain, Right Upper Quadrant Social History Tobacco Use Types Packs/Day Years Used Date Smoking Tobacco: Never Assessed Comments No Sex and Gender Information Value Date Recorded Sex Assigned at Not on file Legal Sex Female 3:57 AM MESS ATTENDANT Gender Identity Not on file Sexual Orientation Not on file documented as of this encounter Plan of Treatment Not on file documented as of this encounter Procedures Procedure Name Priority Date/Time Associated Diagnosis Comments US ABDOMEN LIMITED Timed Study 12/10/2007 8: 59 AM CDT documented in this encounter Results * US ABDOMEN LIMITED (12/10/2007 8:59 AM CDT) Anatomical Region Laterality Modality Abdomen Other 12/10/2007 8:59 AM CDT Narrative 12/10/2007 9:05 AM CDT [place] [address] [place], [place] [address] Admit Date: 12/10/2007 ALONA MCKEON Sex: F Admit Prov: DRAKE CHRISTIANSON Date: 1995 Primary Care Prov: DRAKE CHRISTIANSON CMRN: [id number] [facility] [address] [place] [address] IMAGING SERVICES Ordering Prov: N/A Accession Number: [id number] Interpretation Examination: Ultrasound Abdomen Limited (Gallbladder and Liver) Clinical History: Abdominal pain. Findings: The liver is normal in size and echotexture without biliary dilation or distinct mass. The common hepatic duct measures 3 mm. The main portal vein is patent with hepatopetal blood flow. The hepatic veins are also patent. The gallbladder is normal in appearance without gallstones, gallbladder wall thickening, or pericholecystic fluid. The visualized portion of the pancreas is unremarkable. Impression: Normal ultrasound of the liver, gallbladder, pancreas, and biliary tree. . Dictated by: Rhys VEGA 12/10/2007 09:04 Electronically signed by: Rhys VEGA 12/10/2007 09:05 Procedure Note Provider, Historical - 12/10/2007 [place] [address] [place], [place] [address] Admit Date: 12/10/2007 ALONA MCKEON Sex: F Admit Prov: DRAKE CHRISTIANSON Date: 1995 Primary Care Prov: DRAKE CHRISTIANSON CMRN: [id number] [id number] IM[facility]ING SERVICES Ordering Prov: N/A Interpretation Examination: Ultrasound Abdomen Limited (Gallbladder and Liver) Clinical History: Abdominal pain. Findings: The liver is normal in size and echotexture withoutbiliary dilation or distinct mass. The common hepatic duct measures 3 mm.The main portal vein is patent with hepatopetal blood flow. The hepatic veinsare also patent. The gallbladder is normal in appearance without gallstones,gallbladder wall thickening, or pericholecystic fluid. The visualized portion ofthe pancreas is unremarkable. Impression: Normal ultrasound of the liver, gallbladder, pancreas,and biliary tree. . Dictated by: Rhys VEGA 12/10/2007 09:04 Electronically signed by: Rhys VEGA 12/10/2007 09:05 us Drake Christianson MD US ORDERABLES Final Result documented in this encounter Visit Diagnoses Diagnosis Abdominal pain, right upper quadrant documented in this encounter Care Teams Spice Miller Relationship Specialty Start Date End Date Drake Christianson MD [address] [place] [address] PCP - General 06/02/02 documented as of this encounter
--- OUTSIDE RECORDS SUMMARY | 2024-10-30 11:38 | XMS_ITS | Encounter Summary ---
Author Organization [facility] Address [address] [place] [address] Care Team Providers Care Traffic Recorder Name Role Phone Viktoria Nguyne MD Primary Care Provider [phone] Encounter Details Date Type Department Care Team (Late st Contact Info) Description 05/23/2003 Outpatient Historical [facility] [address] [place] [address] Viktoria Nguyen MD [address] [place] [address] Social History Tobacco Use Types Packs/Day Years Used Date Smoking Tobacco: Never Assessed Comments Unknown Sex and Gender Information Value Date Recorded Sex Assigned at Not on file Legal Sex Female 3:57 AM IRON WORKER Gender Identity Not on file Sexual Orientation Not on file documented as of this encounter Plan of Treatment Not on file documented as of this encounter Visit Diagnoses Not on filedocumented in this encounter Care Teams Traffic Recorder Relationship Specialty Start Date End Date Viktoria Nguyen MD [address] [place] [address] PCP - General 06/02/02 documented as of this encounter
--- OUTSIDE RECORDS SUMMARY | 2024-10-30 11:38 | XMS_ITS | Encounter Summary ---
Author Organization [facility] Address [address] [place] [address] Care Team Providers Care Bulk Filler Name Role Phone Viktoria Nguyen MD Primary Care Provider [phone] Encounter Details Date Type Department Care Team (Late st Contact Info) Description 01/03/2006 Outpatient Historical [facility] Pediatrics [facility] [address] [place] [address] Olga Dai MD NO ADDRESS ON FILE Social History Tobacco Use Types Packs/Day Years Used Date Smoking Tobacco: Never Assessed Comments Unknown Sex and Gender Information Value Date Recorded Sex Assigned at Not on file Legal Sex Female 3:57 AM FRAME WELDER [employer] Gender Identity Not on file Sexual Orientation Not on file documented as of this encounter Plan of Treatment Not on file documented as of this encounter Visit Diagnoses Not on filedocumented in this encounter Care Teams Bulk Filler Relationship Specialty Start Date End Date Viktoria Nguyen MD [address] [place] [address] PCP - General 06/02/02 documented as of this encounter
--- OUTSIDE RECORDS SUMMARY | 2024-10-30 11:38 | XMS_ITS | Encounter Summary ---
Author Organization [facility] Address [address] [place] [address] Care Team Providers Care Wrapper Sizer Name Role Phone Viktoria Nguyen MD Primary Care Provider [phone] Encounter Details Date Type Department Care Team (Late st Contact Info) Description 07/23/2006 Outpatient Historical [facility] Pediatrics [facility] [address] [place] [address] Viktoria Nguyen MD [address] [place] [address] Social History Tobacco Use Types Packs/Day Years Used Date Smoking Tobacco: Never Assessed Comments Unknown Sex and Gender Information Value Date Recorded Sex Assigned at Not on file Legal Sex Female 3:57 AM PIT RECORDER Gender Identity Not on file Sexual Orientation Not on file documented as of this encounter Plan of Treatment Not on file documented as of this encounter Visit Diagnoses Not on filedocumented in this encounter Care Teams Wrapper Sizer Relationship Specialty Start Date End Date Viktoria Nguyen MD [address] [place] [address] PCP - General 06/02/02 documented as of this encounter
--- OUTSIDE RECORDS SUMMARY | 2024-10-30 11:38 | XMS_ITS | Encounter Summary ---
Author Organization [facility] Address [address] [place] [address] Care Team Providers Care Calender Roll Operator Name Role Phone Viktoria Nguyen MD Primary Care Provider [phone] Encounter Details Date Type Department Care Team (Late st Contact Info) Description 12/13/1998 Outpatient Historical [facility] Pediatrics [facility] [address] [place] [address] Viktoria Nguyen MD [address] [place] [address] Social History Tobacco Use Types Packs/Day Years Used Date Smoking Tobacco: Never Assessed Comments Unknown Sex and Gender Information Value Date Recorded Sex Assigned at Not on file Legal Sex Female 3:57 AM CHARGE POSTER Gender Identity Not on file Sexual Orientation Not on file documented as of this encounter Plan of Treatment Not on file documented as of this encounter Visit Diagnoses Not on filedocumented in this encounter Care Teams Calender Roll Operator Relationship Specialty Start Date End Date Viktoria Nguyen MD [address] [place] [address] PCP - General 06/02/02 documented as of this encounter
--- OUTSIDE RECORDS SUMMARY | 2024-10-30 11:38 | XMS_ITS | Encounter Summary ---
Author Organization [facility] Address [address] [place] [address] Care Team Providers Care Sales Management Intern Name Role Phone Viktoria Nguyen MD Primary Care Provider [phone] Encounter Details Date Type Department Care Team (Late st Contact Info) Description 07/02/2004 Outpatient Historical [facility] Pediatrics [facility] [address] [place] [address] Viktoria Nguyen MD [address] [place] [address] Social History Tobacco Use Types Packs/Day Years Used Date Smoking Tobacco: Never Assessed Comments Unknown Sex and Gender Information Value Date Recorded Sex Assigned at Not on file Legal Sex Female 3:57 AM HOIST WORKER Gender Identity Not on file Sexual Orientation Not on file documented as of this encounter Plan of Treatment Not on file documented as of this encounter Visit Diagnoses Not on filedocumented in this encounter Care Teams Sales Management Intern Relationship Specialty Start Date End Date Viktoria Nguyen MD [address] [place] [address] PCP - General 06/02/02 documented as of this encounter
--- OUTSIDE RECORDS SUMMARY | 2024-10-30 11:38 | XMS_ITS | Encounter Summary ---
Author Organization [facility] Address [address] [place] [address] Care Team Providers Care Cena Name Role Phone Viktoria Nguyen MD Primary Care Provider [phone] Encounter Details Date Type Department Care Team (Late st Contact Info) Description 06/02/2002 Outpatient Historical [facility] Viktoria Nguyen MD [address] [place] [address] URIN TRACT INFECTION NOS (Primary Dx) Social History Tobacco Use Types Packs/Day Years Used Date Smoking Tobacco: Never Assessed Comments Unknown Sex and Gender Information Value Date Recorded Sex Assigned at Not on file Legal Sex Female 3:57 AM PROCESS SAFETY MANAGER Gender Identity Not on file Sexual Orientation Not on file documented as of this encounter Plan of Treatment Not on file documented as of this encounter Visit Diagnoses Diagnosis Urinary tract infection, site not specified- Primary documented in this encounter Care Teams Cena Relationship Specialty Start Date End Date Viktoria Nguyen MD [address] [place] [address] PCP - General 06/02/02 documented as of this encounter
--- OUTSIDE RECORDS SUMMARY | 2024-10-30 11:38 | XMS_ITS | Encounter Summary ---
Author Organization [facility] Address [address] [place] [address] Care Team Providers Care Sugar Mixer Name Role Phone Viktoria Nguyen MD Primary Care Provider [phone] Encounter Details Date Type Department Care Team (Late st Contact Info) Description 04/20/2001 Outpatient Historical [facility] Pediatrics [facility] [address] [address] Viktoria Nguyen MD [address] [place] [address] Social History Tobacco Use Types Packs/Day Years Used Date Smoking Tobacco: Never Assessed Comments Unknown Sex and Gender Information Value Date Recorded Sex Assigned at Not on file Legal Sex Female 3:57 AM SEED YEAST OPERATOR Gender Identity Not on file Sexual Orientation Not on file documented as of this encounter Plan of Treatment Not on file documented as of this encounter Visit Diagnoses Not on filedocumented in this encounter Care Teams Sugar Mixer Relationship Specialty Start Date End Date Viktoria Nguyen MD [address] [place] [address] PCP - General 06/02/02 documented as of this encounter
--- OUTSIDE RECORDS SUMMARY | 2024-10-30 11:38 | XMS_ITS | Encounter Summary ---
Author Organization Address [address] [place] [address] Care Team Providers Care Minute Clerk For Basic Traffic Name Role Phone Viktoria Nguyen MD Primary Care Provider [phone] Encounter Details Date Type Department Care Team (Late st Contact Info) Description 04/25/2002 Outpatient Historical [facility] Pediatrics [facility] [address] [place] [address] Viktoria Nguyen MD [address] [place] [address] Social History Tobacco Use Types Packs/Day Years Used Date Smoking Tobacco: Never Assessed Comments Unknown Sex and Gender Information Value Date Recorded Sex Assigned at Not on file Legal Sex Female 3:57 AM SUPERVISOR ASSEMBLY DEPARTMENT Gender Identity Not on file Sexual Orientation Not on file documented as of this encounter Plan of Treatment Not on file documented as of this encounter Visit Diagnoses Not on filedocumented in this encounter Care Teams Minute Clerk For Basic Traffic Relationship Specialty Start Date End Date Viktoria Nguyen MD [address] [place] [address] PCP - General 06/02/02 documented as of this encounter
--- OUTSIDE RECORDS SUMMARY | 2024-10-30 11:38 | XMS_ITS | Encounter Summary ---
Author Organization [facility] Address [address] [place] [address] [place] [address] Care Team Providers Care Manager Community Name Role Phone Unavailable Primary Care Provider Unavailabl e Encounter Details Date Type Department Care Team (Late st Contact Info) Description 04/12/2020 Lab Requisition [facility] [address] [place] [address] Immanuel Kim MD [address] [place] [address] Social History Tobacco Use Types Packs/Day Years [...] Procedure Name Priority Date/Time Associated Diagnosis Comments DERMATOPATHOLOGY Routine 04/11/2020 12:0 0 AM CDT documented in this encounter Results * DERMATOPATHOLOGY (04/11/2020 12:00 AM CDT) Case Report Dermatopathology Report Case: [id number] Authorizing Provider: Immanuel Kim MD Collected: 04/11/2020 12:00 AM Ordering Location: [facility] Received: 04/12/2020 10:22 AM Pathologist: Dereck Pond MD Specimen: Skin, right temporal scalp 0 12:17 PM CDT DERMATOPATHOLOGY LABORATORY Final Diagnosis Specimen A. 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 Path#[id number] 0 12:17 PM CDT DERMATOPATHOLOGY LABORATORY Gross Description Specimen A: Received is one formalin filled container labeled with the patient's name and designated right temporal scalp. The specimen consists of a shave biopsy measuring 10x8x3 mm. Jar 0. 0 12:17 PM CDT DERMATOPATHOLOGY LABORATORY Microscopic Description Specimen A. SKIN, right temporal scalp: There are nests of cytologically bland melanocytes within the dermis that mature with depth. 0 12:17 PM CDT DERMATOPATHOLOGY LABORATORY Disclaimer An external and internal positive and negative controls are appropriate for the histochemical, immunohistochemical and immunofluorescence stain(s) in this case (if any), except where stated explicitly. The performance characteristics of the stain(s) cited in this report were developed and its performance characteristic determined by the Dermatopathology Laboratory at [facility], directed by Dr. Matilde Pond. These tests need not be, and therefore are not, approved by the [place] Food and Drug Administration. The tests are used for clinical purposes. Billing Codes Specimen Charges Stain Charges 93364 1 0 12:17 PM CDT DERMATOPATHOLOGY LABORATORY Embedded Images 0 12:17 PM CDT DERMATOPATHOLOGY LABORATORY Pathology/Cytolog y TISSUE SPECIMEN FROM SKIN / Unknown 04/11/2020 04/12/2020 10:22 AM CDT Immanuel Kim MD LAB - PATHOLOGY/CYTOLOGY ORDER HYUN Final Result DERMATOPATHOLOGY LABORATORY [facility] - Department of Dermatology [address] [place] [address], [facility] [phone] documented in this encounter Visit Diagnoses Not on filedocumented in this encounter
--- OUTSIDE RECORDS SUMMARY | 2024-10-30 11:38 | XMS_ITS | Encounter Summary ---
Author Organization [facility] Address [address] [place] [address] Care Team Providers Care Bench Examiner Name Role Phone Viktoria Nguyen MD Primary Care Provider [phone] Encounter Details Date Type Department Care Team (Late st Contact Info) Description 07/14/1998 Outpatient Historical [facility] Pediatrics [facility] [address] [place] [address] Viktoria Nguyen MD [address] [place] [address] Social History Tobacco Use Types Packs/Day Years Used Date Smoking Tobacco: Never Assessed Comments Unknown Sex and Gender Information Value Date Recorded Sex Assigned at Not on file Legal Sex Female 3:57 AM GERMAN TUTOR Gender Identity Not on file Sexual Orientation Not on file documented as of this encounter Plan of Treatment Not on file documented as of this encounter Visit Diagnoses Not on filedocumented in this encounter Care Teams Bench Examiner Relationship Specialty Start Date End Date Viktoria Nguyen MD [address] [place] [address] PCP - General 06/02/02 documented as of this encounter
--- OUTSIDE RECORDS SUMMARY | 2024-10-30 11:38 | XMS_ITS | Clinical Summary ---
Author Organization [facility] ers Address [address] [place] [address] 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 12/19/2009 Obesity 03/20/2009 Constipation 03/20/2009 Pure hypercholesterolemia 01/21/2008 Immunizations Immunization Administration Dates Next Due (ADACEL/BOOSTRIX)(10 YR UP) TDAP VACCINE, 0.5ML, IM 01/18/2008 (GARDASIL)(9-45 YRS) HUMAN PAPILLOMAVIRUS VACCINE, TYPES 6, 11, 16, 18, QUADRIVALENT (4VHPV), 3 DOSE, IM 07/30/2011 (INFANRIX)(6 WKS-6 YRS) DIPT HERIA, TETANUS TOXOIDS, AND ACCELLULAR PERTUSSIS VACCINE (DTAP), 0.5 ML IM 01/16/2003,05/11/1998,01/30/1998,12/12 (IPOL)(6 WKS AND UP) POLIOVI SISSY VACCINE, INACTIVATED (IPV), 3 DOSE, SUBCUT OR IM 01/16/2003,10/19/1998,01/30/1998,12/12 (M-M-R II/PRIORIX)(12 MO UP) MEASLES, MUMPS AND RUBELLA VIRUS VACCINE, 0.5 ML IM/SUBCUT 01/16/2003,10/19/1998 (VARIVAX)(12 MOS UP)VARICELL A VIRUS VACCINE (PF) 0.5 ML, SUB CUT 01/18/2008,10/19/1998 DTaP Hib Combined Vaccine IM 07/02/1999 HIB, Unspecified Formulation 05/11/1998,01/30/19 98,1997 Hepatitis A Vaccine 01/18/2008 Hepatitis B Vaccine 07/14/1998,1997,1997 Influenza Seasonal Unspecifi ed Formulation IM 07/02/1999 Meningococcal A Conjugate Vaccine IM 07/30/2011 Family History Medical History Relation Name Comments Cancer Father Healthy Mother Relation Name Status Comments Father Mother Alive Social History Tobacco Use Types Packs/Day Years Used Date Smoking Tobacco: Never Smokeless Tobacco: Never Alcohol Use Standard Drinks/Week Comments No 0 (1 standard drink = 0.6 oz pur e alcohol) Comments No Sex and Gender Information Value Date Recorded Sex Assigned at Not on file Legal Sex Female 3:57 AM INSPECTOR HAIRSPRING TRUING Gender Identity Not on file Sexual Orientation Not on file Last Filed Vital Signs Vital Sign Reading Time Taken Comments Blood Pressure 110/76 07/30/2011 2:33 PM INSPECTOR HAIRSPRING TRUING Pulse 96 08/18/2009 5:08 AM INSPECTOR HAIRSPRING TRUING Temperature 36.6 C (97.8 F) 11/25/2011 3:17 PM CDT Respiratory Rate 20 08/18/2009 5:08 AM INSPECTOR HAIRSPRING TRUING Oxygen Saturation 99% 08/18/2009 5:08 AM INSPECTOR HAIRSPRING TRUING Inhaled Oxygen Concentration - - Weight 125.6 kg (277 lb) 11/25/2011 3:17 PM CDT Height 161.3 cm (5' 3.5 ) 07/30/2011 2:33 PM INSPECTOR HAIRSPRING TRUING Body Mass Index - - Plan of Treatment Health Maintenance Due Date Last Done Comments HPV VACCINES (2 - 2-dose series) 01/28/2012 07/30/19 12 DTAP/TDAP/TD VACCINES (7 - T d or Tdap) 01/17/2018 01/18/2008, 01/16/2003, 07/02/1999, Additional history exists CERVICAL CANCER SCREENING 2018 HPV/Cotest (-) 2018 PAP SMEAR 2018 INFLUENZA VACCINE (#1) 2024 07/02/1999 HEPATITIS B VACCINES Completed 07/14/1998, 1997, 1997 Advance Directives For more information, please contact: [phone] Documents on File Type Date Recorded Patient Transportation Dispatch Manager Expl anation Advance Directive POA 09/10/2009 Care Teams Jack Machine Operator Relationship Specialty Start Date End Date Viktoria Nguyen MD [address] [place] [address] PCP - General 06/02/02
--- OUTSIDE RECORDS SUMMARY | 2024-10-30 11:38 | XMS_ITS | Encounter Summary ---
Author Organization [facility] Address [address] [place] [address] Care Team Providers Care Electric Motor Tester Name Role Phone Viktoria Nguyen MD Primary Care Provider [phone] Encounter Details Date Type Department Care Team (Late st Contact Info) Description 07/02/1999 Outpatient Historical [facility] Pediatrics [facility] [address] [place] [address] Viktoria Nguyen MD [address] [place] [address] Social History Tobacco Use Types Packs/Day Years Used Date Smoking Tobacco: Never Assessed Comments Unknown Sex and Gender Information Value Date Recorded Sex Assigned at Not on file Legal Sex Female 3:57 AM ENGLISH DIVISION CHAIR Gender Identity Not on file Sexual Orientation Not on file documented as of this encounter Plan of Treatment Not on file documented as of this encounter Visit Diagnoses Not on filedocumented in this encounter Care Teams Electric Motor Tester Relationship Specialty Start Date End Date Viktoria Nguyen MD [address] [place] [address] PCP - General 06/02/02 documented as of this encounter
--- OUTSIDE RECORDS SUMMARY | 2024-10-30 11:38 | XMS_ITS | Encounter Summary ---
Author Organization [facility] Address [address] [place] [address] Care Team Providers Care Batter Mixer Name Role Phone Viktoria Nguyen MD Primary Care Provider [phone] Encounter Details Date Type Department Care Team (Late st Contact Info) Description 05/19/2003 Outpatient Historical [facility] Pediatrics [facility] [address] [place] [address] Viktoria Nguyen MD [address] [place] [address] Social History Tobacco Use Types Packs/Day Years Used Date Smoking Tobacco: Never Assessed Comments Unknown Sex and Gender Information Value Date Recorded Sex Assigned at Not on file Legal Sex Female 3:57 AM PURCHASING INTERN Gender Identity Not on file Sexual Orientation Not on file documented as of this encounter Plan of Treatment Not on file documented as of this encounter Visit Diagnoses Not on filedocumented in this encounter Care Teams Batter Mixer Relationship Specialty Start Date End Date Viktoria Nguyen MD [address] [place] [address] PCP - General 06/02/02 documented as of this encounter
--- OUTSIDE RECORDS SUMMARY | 2024-10-30 11:38 | XMS_ITS | Encounter Summary ---
Author Organization [facility] Address [address] [place] [address] Care Team Providers Care Hydrogenation Still Operator Name Role Phone Viktoria Nguyen MD Primary Care Provider [phone] Encounter Details Date Type Department Care Team (Late st Contact Info) Description 06/25/2006 Outpatient Historical [facility] [address] [place] [address] Viktoria Nguyen MD [address] [place] [address] Social History Tobacco Use Types Packs/Day Years Used Date Smoking Tobacco: Never Assessed Comments Unknown Sex and Gender Information Value Date Recorded Sex Assigned at Not on file Legal Sex Female 3:57 AM TELEPHONE DIRECTORY DELIVERER Gender Identity Not on file Sexual Orientation Not on file documented as of this encounter Plan of Treatment Not on file documented as of this encounter Visit Diagnoses Not on filedocumented in this encounter Care Teams Hydrogenation Still Operator Relationship Specialty Start Date End Date Viktoria Nguyen MD [address] [place] [address] PCP - General 06/02/02 documented as of this encounter
--- OUTSIDE RECORDS SUMMARY | 2024-10-30 11:38 | XMS_ITS | Encounter Summary ---
Author Organization [facility] Address [address] [place] [address] Care Team Providers Care Performance Specialist Name Role Phone Viktoria Nguyen MD Primary Care Provider [phone] Encounter Details Date Type Department Care Team (Late st Contact Info) Description 02/10/2000 Outpatient Historical [facility] Pediatrics [facility] [address] [place] [address] Viktoria Nguyen MD [address] [place] [address] Social History Tobacco Use Types Packs/Day Years Used Date Smoking Tobacco: Never Assessed Comments Unknown Sex and Gender Information Value Date Recorded Sex Assigned at Not on file Legal Sex Female 3:57 AM PAN DUMPER Gender Identity Not on file Sexual Orientation Not on file documented as of this encounter Plan of Treatment Not on file documented as of this encounter Visit Diagnoses Not on filedocumented in this encounter Care Teams Performance Specialist Relationship Specialty Start Date End Date Viktoria Nguyen MD [address] [place] [address] PCP - General 06/02/02 documented as of this encounter
--- OUTSIDE RECORDS SUMMARY | 2024-10-30 11:38 | XMS_ITS | Encounter Summary ---
Author Organization [facility] Address [address] [place] [address] Care Team Providers Care Profiler Hand Name Role Phone Viktoria Nguyen MD Primary Care Provider [phone] Encounter Details Date Type Department Care Team (Late st Contact Info) Description 05/05/2002 Outpatient Historical [facility] Pediatrics [facility] [address] [place] [address] Viktoria Nguyen MD [address] [place] [address] Social History Tobacco Use Types Packs/Day Years Used Date Smoking Tobacco: Never Assessed Comments Unknown Sex and Gender Information Value Date Recorded Sex Assigned at Not on file Legal Sex Female 3:57 AM CHANNEL TURNER Gender Identity Not on file Sexual Orientation Not on file documented as of this encounter Plan of Treatment Not on file documented as of this encounter Visit Diagnoses Not on filedocumented in this encounter Care Teams Profiler Hand Relationship Specialty Start Date End Date Viktoria Nguyen MD [address] [place] [address] PCP - General 06/02/02 documented as of this encounter
--- OUTSIDE RECORDS SUMMARY | 2024-10-30 11:38 | XMS_ITS | Encounter Summary ---
Author Organization [facility] Address [address] [place] [address] Care Team Providers Care Development Chemist Name Role Phone Viktoria Nguyen MD Primary Care Provider [phone] Encounter Details Date Type Department Care Team (Late st Contact Info) Description 03/14/2005 Outpatient Historical [facility] Pediatrics [facility] [address] [place] [address] Viktoria Nguyen MD [address] [place] [address] Social History Tobacco Use Types Packs/Day Years Used Date Smoking Tobacco: Never Assessed Comments Unknown Sex and Gender Information Value Date Recorded Sex Assigned at Not on file Legal Sex Female 3:57 AM DRILLING INSPECTOR Gender Identity Not on file Sexual Orientation Not on file documented as of this encounter Plan of Treatment Not on file documented as of this encounter Visit Diagnoses Not on filedocumented in this encounter Care Teams Development Chemist Relationship Specialty Start Date End Date Viktoria Nguyen MD [address] [place] [address] PCP - General 06/02/02 documented as of this encounter
--- OUTSIDE RECORDS SUMMARY | 2024-10-30 11:38 | XMS_ITS | Encounter Summary ---
Author Organization [facility] Address [address] [place] [address] Care Team Providers Care Pocket Flap Creasing Machine Operator Name Role Phone Viktoria Nguyen MD Primary Care Provider [phone] Encounter Details Date Type Department Care Team (Late st Contact Info) Description 08/19/2005 Outpatient Historical [facility] Pediatrics [facility] [address] [place] [address] Viktoria Nguyen MD [address] [place] [address] Social History Tobacco Use Types Packs/Day Years Used Date Smoking Tobacco: Never Assessed Comments Unknown Sex and Gender Information Value Date Recorded Sex Assigned at Not on file Legal Sex Female 3:57 AM FUEL HOUSE ATTENDANT Gender Identity Not on file Sexual Orientation Not on file documented as of this encounter Plan of Treatment Not on file documented as of this encounter Visit Diagnoses Not on filedocumented in this encounter Care Teams Pocket Flap Creasing Machine Operator Relationship Specialty Start Date End Date Viktoria Nguyen MD [address] [place] [address] PCP - General 06/02/02 documented as of this encounter
--- OUTSIDE RECORDS SUMMARY | 2024-10-30 11:38 | XMS_ITS | Encounter Summary ---
Author Organization [facility] Address [address] [place] [address] Care Team Providers Care Triage Clinician Name Role Phone Viktoria Nguyen MD Primary Care Provider Encounter Details Date Type Department Care Team (Late st Contact Info) Description 07/02/1999 Outpatient Historical [facility] Pediatric[facility] [address] [place] [address] Viktoria Nguyen MD [address] [place] [address] Social History Tobacco Use Types Packs/Day Years Used Date Smoking Tobacco: Never Assessed Comments Unknown Sex and Gender Information Value Date Recorded Sex Assigned at Not on file Legal Sex Female 3:57 AM CLERK CARRIER Gender Identity Not on file Sexual Orientation Not on file documented as of this encounter Plan of Treatment Not on file documented as of this encounter Visit Diagnoses Not on filedocumented in this encounter Care Teams Triage Clinician Relationship Specialty Start Date End Date Viktoria Nguyen MD [address] [place] [address] PCP - General 06/02/02 documented as of this encounter
--- OUTSIDE RECORDS SUMMARY | 2024-10-30 11:38 | XMS_ITS | Encounter Summary ---
Author Organization [facility] Address [address] [place] [address] Care Team Providers Care Occupational Therapist Assistant Name Role Phone Viktoria Nguyen MD Primary Care Provider [phone] Encounter Details Date Type Department Care Team (Late st Contact Info) Description 10/21/2006 Outpatient Historical [facility]s [facility] [address] [place] [address] Viktoria Nguyen MD [address] [place] [address] Social History Tobacco Use Types Packs/Day Years Used Date Smoking Tobacco: Never Assessed Comments Unknown Sex and Gender Information Value Date Recorded Sex Assigned at Not on file Legal Sex Female 3:57 AM SWING GRINDER Gender Identity Not on file Sexual Orientation Not on file documented as of this encounter Plan of Treatment Not on file documented as of this encounter Visit Diagnoses Not on filedocumented in this encounter Care Teams Occupational Therapist Assistant Relationship Specialty Start Date End Date Viktoria Nguyen MD [address] [place] [address] PCP - General 06/02/02 documented as of this encounter
--- OUTSIDE RECORDS SUMMARY | 2024-10-30 11:38 | XMS_ITS | Encounter Summary ---
Author Organization [facility] Address [address] [place] [address] Care Team Providers Care Prison Librarian Name Role Phone Viktoria Nguyen MD Primary Care Provider [phone] Encounter Details Date Type Department Care Team (Late st Contact Info) Description 01/16/2003 Outpatient Historical [facility] Pediatrics [facility] [address] [place] [address] Viktoria Nguyen MD [address] [place] [address] Social History Tobacco Use Types Packs/Day Years Used Date Smoking Tobacco: Never Assessed Comments Unknown Sex and Gender Information Value Date Recorded Sex Assigned at Not on file Legal Sex Female 3:57 AM PREP MANAGER Gender Identity Not on file Sexual Orientation Not on file documented as of this encounter Plan of Treatment Not on file documented as of this encounter Visit Diagnoses Not on filedocumented in this encounter Care Teams Prison Librarian Relationship Specialty Start Date End Date Viktoria Nguyen MD [address] [place] [address] PCP - General 06/02/02 documented as of this encounter
--- OUTSIDE RECORDS SUMMARY | 2024-10-30 11:38 | XMS_ITS | Encounter Summary ---
Author Organization [facility] Address [address] [place] [address] Care Team Providers Care Water And Sewer Systems Superintendent Name Role Phone Viktoria Nguyen MD Primary Care Provider [phone] Encounter Details Date Type Department Care Team (Late st Contact Info) Description 06/02/2000 Outpatient Historical [facility] Pediatrics [facility] [address] [place] [address] Viktoria Nguyen MD [address] [place] [address] Social History Tobacco Use Types Packs/Day Years Used Date Smoking Tobacco: Never Assessed Comments Unknown Sex and Gender Information Value Date Recorded Sex Assigned at Not on file Legal Sex Female 3:57 AM TEAM ASSISTANT Gender Identity Not on file Sexual Orientation Not on file documented as of this encounter Plan of Treatment Not on file documented as of this encounter Visit Diagnoses Not on filedocumented in this encounter Care Teams Water And Sewer Systems Superintendent Relationship Specialty Start Date End Date Viktoria Nguyen MD [address] [place] [address] PCP - General 06/02/02 documented as of this encounter
--- OUTSIDE RECORDS SUMMARY | 2024-10-30 11:38 | XMS_ITS | Encounter Summary ---
Author Organization [facility] Address [address] [place] [address] Care Team Providers Care Medical Historian Name Role Phone Viktoria Nguyen MD Primary Care Provider [phone] Encounter Details Date Type Department Care Team (Late st Contact Info) Description 06/16/1998 Outpatient Historical [facility] Pediatrics [facility] [address] [place] [address] Viktoria Nguyen MD [address] [place] [address] Social History Tobacco Use Types Packs/Day Years Used Date Smoking Tobacco: Never Assessed Comments Unknown Sex and Gender Information Value Date Recorded Sex Assigned at Not on file Legal Sex Female 3:57 AM HARDBOARD PANEL PRINTER Gender Identity Not on file Sexual Orientation Not on file documented as of this encounter Plan of Treatment Not on file documented as of this encounter Visit Diagnoses Not on filedocumented in this encounter Care Teams Medical Historian Relationship Specialty Start Date End Date Viktoria Nguyen MD [address] [place] [address] PCP - General 06/02/02 documented as of this encounter
--- OUTSIDE RECORDS SUMMARY | 2024-10-30 11:38 | XMS_ITS | Encounter Summary ---
Author Organization [facility] Address [address] [place] [address] Care Team Providers Care Men'S Locker Room Attendant Name Role Phone Viktoria Nguyen MD Primary Care Provider [phone] Encounter Details Date Type Department Care Team (Late st Contact Info) Description 10/14/2001 Outpatient Historical [facility] [address] [place] [address] Viktoria Nguyen MD [address] [place] [address] Social History Tobacco Use Types Packs/Day Years Used Date Smoking Tobacco: Never Assessed Comments Unknown Sex and Gender Information Value Date Recorded Sex Assigned at Not on file 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
--- OUTSIDE RECORDS SUMMARY | 2024-10-30 11:38 | XMS_ITS | Encounter Summary ---
Author Organization [employer] [facility] Address [address] [place] [address] Care Team Providers Care Hospice Superintendent Name Role Phone Viktoria Nguyen MD Primary Care Provider [phone] Encounter Details Date Type Department Care Team (Latest Contact Info) Description 06/19/1998 Outpatient Historical [facility] Viktoria Hylton MD [address] [place] [address] Intracranial injury of other and unspecified nature, without mention of open intracranial wound, unspecified state of consciousness (Primary Dx) Social History Tobacco Use Types Packs/Day Years Used Date Smoking Tobacco: Never Assessed Comments Unknown Sex and Gender Information Value Date Recorded Sex Assigned at Not on file 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
--- OUTSIDE RECORDS SUMMARY | 2024-10-30 11:38 | XMS_ITS | Encounter Summary ---
Author Organization [facility] Address [address] [place] [address] Care Team Providers Care Chief Power Dispatcher Name Role Phone Viktoria Nguyen MD Primary Care Provider [phone] Encounter Details Date Type Department Care Team (Late st Contact Info) Description 08/22/2003 Outpatient Historical [facility] Pediatrics [facility] [address] [place] [address] Viktoria Nguyen MD [address] [place] [address] Social History Tobacco Use Types Packs/Day Years Used Date Smoking Tobacco: Never Assessed Comments Unknown Sex and Gender Information Value Date Recorded Sex Assigned at Not on file 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
--- OUTSIDE RECORDS SUMMARY | 2024-10-30 11:38 | XMS_ITS | Encounter Summary ---
Author Organization [facility] Address [address] [place] [address] Care Team Providers Care Chief Underwriter Name Role Phone Viktoria Nguyen MD Primary Care Provider [phone] Encounter Details Date Type Department Care Team (Late st Contact Info) Description 07/11/2002 Outpatient Historical [facility] Pediatrics [facility] [address] [place] [address] Viktoria Nguyen MD [address] [place] [address] Social History Tobacco Use Types Packs/Day Years Used Date Smoking Tobacco: Never Assessed Comments Unknown Sex and Gender Information Value Date Recorded Sex Assigned at Not on file 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
--- OUTSIDE RECORDS SUMMARY | 2024-10-30 11:38 | XMS_ITS | Encounter Summary ---
Author Organization [facility] Address [address] [place] [address] Care Team Providers Care Rehabilitation Nurse Name Role Phone Viktoria Nguyen MD Primary Care Provider [phone] Encounter Details Date Type Department Care Team (Late st Contact Info) Description 07/24/[address] [facility] Pediatrics 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
--- OUTSIDE RECORDS SUMMARY | 2024-10-30 11:38 | XMS_ITS | Encounter Summary ---
Author Organization [facility] Address [address] [place] [address] Care Team Providers Care Vending Machine Collector Name Role Phone Viktoria Nguyen MD Primary Care Provider Encounter Details Date Type Department Care Team (Late st Contact Info) Description 08/29/2003 Outpatient Historical [facility] Pediatrics [facility] [address] [place] [address] Vikotria Nguyen MD [address] [place] [address] Social History Tobacco Use Types Packs/Day Years Used Date Smoking Tobacco: Never Assessed Comments Unknown Sex and Gender Information Value Date Recorded Sex Assigned at Not on file 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
--- OUTSIDE RECORDS SUMMARY | 2024-10-30 11:38 | XMS_ITS | Encounter Summary ---
Author Organization [facility] Address [address] [place] [address] Care Team Providers Care Motorsports Technician Name Role Phone Viktoria Nguyen MD Primary Care Provider [phone] Encounter Details Date Type Department Care Team (Late st Contact Info) Description 11/13/2003 Outpatient Historical [facility] Pediatrics [facility] [address] [place] [address] [place] [address] Fozia Harrison MD [address] [facility] [address] [facility] [address] [place] [address] Social History Tobacco Use Types Packs/Day Years Used Date Smoking Tobacco: Never Assessed Comments Unknown Sex and Gender Information Value Date Recorded Sex Assigned at Not on file 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
--- OUTSIDE RECORDS SUMMARY | 2024-10-30 11:38 | XMS_ITS | Encounter Summary ---
Author Organization [facility] Address [address] [place] [address] Care Team Providers Care Chore Worker Name Role Phone Viktoria Nguyen MD Primary Care Provider [phone] Encounter Details Date Type Department Care Team (Late st Contact Info) Description 04/15/2003 Outpatient Historical [facility] Pediatrics 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
--- OUTSIDE RECORDS SUMMARY | 2024-10-30 11:38 | XMS_ITS | Clinical Summary ---
Author Organization [facility] Address [address] [place] [id number] Care Team Providers Care Cracker Off Name Role Phone None, Provider MD Unavailable Unavailable None, Provider MD Primary Care Provider Unavaila ble Allergies Active Allergy Reactions Criticality Noted Date Comments Amoxicillin Hives 11/29/2022 Shellfish Allergy Itching Medium 04/03/2010 Medications No known medications Active Problems Problem Noted Date Diagnosed Date Esophageal dysphagia 11/27/2022 Overview (11/27/2022): Added automatically from request for surgery [id number] BMI 50.0-59.9, adult 02/10/2020 Comments Yes Resolved Problems Problem Noted Date Diagnosed Date Resolved Date Encounter for health mainten ance examination in adult 02/10/2020 03/09/2020 Immunizations Immunization Administration Dates Next Due Dtap (Generic) 01/16/2003, 8,01/30/1998,11/27 Dtap/Hib 07/02/1999 HPV 07/30/2011 Hepatitis A (Generic) 01/18/2008 Hepatitis B (Generic: Adult) 07/14/1998,12/12/18 98,1997 Hib (Generic) 05/11/1998,01/30/1998,1997 Influenza (Generic) 07/02/1999 MENINGOCOCCAL A C Y&W-135 oligosaccharide (MENVEO) 07/30/2011 MMR (Generic) 01/16/2003,10/19/1998 Polio Ipv (Generic) 01/16/2003, 9,01/30/1998,11/27 Tdap (Generic) 01/18/2008 Varicella Vaccine 01/18/2008,10/19/1998 Family History Medical History Relation Comments Cancer Father Cancer Maternal Grandmother Breast Cancer Mother Diabetes Paternal Grandfather Heart Disease Paternal Grandfather Dementia Paternal Grandmother Relation Status Comments Father Maternal Grandfather Alive Maternal Grandmother Alive Mother Alive Paternal Grandfather Paternal Grandmother Alive Social History Tobacco Use Types Packs/Day Years Used Date Smoking Tobacco: Never Smokeless Tobacco: Never Tobacco Cessation:Counseling Given: No Alcohol Use Standard Drinks/Week Comments Never 0 (1 standard drink = 0.6 oz pur e alcohol) AUDIT-C Answer Date Recorded Q1: How often do you have a drink containing alc ohol? Never 02/10/2020 Average Number of Drinks Not on file 020 Frequency of Binge Drinking Not on file 01/27 PHQ-2 Answer Date Recorded Patient Health Questionnaire-2 Score 0 10/24/2022 Comments Yes Sex and Gender Information Value Date Recorded Sex Assigned at Not on file Legal Sex Female 7:42 PM CDT Gender Identity Not on file Sexual Orientation Not on file Last Filed Vital Signs Vital Sign Reading Time Taken Comments Blood Pressure 130/66 11/29/2022 8:55 AM CDT Pulse 88 11/29/2022 8:55 AM CDT Temperature 37 C (98.6 F) 11/29/2022 8:55 AM CDT Respiratory Rate 18 11/29/2022 8:55 AM CDT Oxygen Saturation 99% 11/29/2022 8:55 AM CDT Inhaled Oxygen Concentration - - Weight 148.3 kg (327 lb) 11/29/2022 6:18 AM CDT Height 170.2 cm (5' 7 ) 11/29/2022 6:18 AM CDT Body Mass Index 51.22 11/29/2022 6:18 AM CDT Plan of Treatment Health Maintenance Due Date Last Done Comments Cervical Cancer Screening Pap Smear (Age 21 to 29) Every 3 Years 1997 Cervical Cancer Screening 1997 Annual Physical 2000 Hepatitis C 09/30/2015 DTaP, Tdap and Td Vaccines (7 - Td or Tdap) 01/17/2018 01/18/2008, 01/16/2003, 07/02/1999, Additional history exists COVID-19 Vaccine (2023- season) 2024 PHQ-2 (Physician [place]) 06/29/2024 10/24/2022 RSV Immunization or 60+ Years (1 - 1-dose 75+ series) 2072 Hepatitis B Vaccines Completed 07/14/1998, 1997, 1997 HPV Vaccines Completed 03/17/2015, 07/30/2011 Meningococcal Vaccine Completed 03/17/2015 , 07/30/2011, 07/30/2011 Meningococcal B Vaccine Aged Out No l onger eligible based on patient's age to complete this topic Pneumococcal Vaccine: Pediatrics (0 to 5 Years) and At-Risk Patients (6 to 49 Years) Aged Out No longer eligible based on patient's age to complete this topic RSV Immunizations Under 20 Months Aged Out No longer eligible based on patient's age to complete this topic Insurance Care Teams Cracker Off Relationship Specialty Start Date End Date None, Provider, MD PCP - General UNKNOWN PHYSICIAN SPECIALTY 11/29/22 None, Provider, MD UNKNOWN PHYSICIAN SPECIALTY 10/05/22
--- OUTSIDE RECORDS SUMMARY | 2024-10-30 11:38 | XMS_ITS | Encounter Summary ---
Author Organization [facility] Address [address] [place] [address] Care Team Providers Care Tenoner Operator Name Role Phone Viktoria Nguyen MD Primary Care Provider [phone] Encounter Details Date Type Department Care Team (Late st Contact Info) Description 12/25/2003 Outpatient Historical [facility] [address] [place] [address] [place] [address] Fozia Harrison MD [address] [facility] [address] [facility] [address] [place] [address] Social History Tobacco Use Types Packs/Day Years Used Date Smoking Tobacco: Never Assessed Comments Unknown Sex and Gender Information Value Date Recorded Sex Assigned at Not on file 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
--- OUTSIDE RECORDS SUMMARY | 2024-10-30 11:38 | XMS_ITS | Clinical Summary ---
Author Organization [facility] Address [address] [place] [place] [address] Care Team Providers Care Dragline Oiler Name Role Phone No, Physician Primary Care Provider [phone] Allergies Active Allergy Reactions Criticality Noted Date [...] 01/18/2008 Meningococcal MCV4P (Menactra) 03/17/2015,2011 Tdap 01/18/2008 Surgical History Surgery Date Site/Laterality Comments WISDOM TOOTH EXTRACTION 06/29/2015 - 06/28/2016 WISDOM TOOTH EXTRACTION Bilateral Family History Medical History Relation Name Comments Cancer Father Cervical cancer Maternal Grandmother Breast cancer Mother Diabetes Paternal Grandfather Hypertension Paternal Grandfather Bladder Cancer Paternal Grandmother Colon cancer Neg Hx Ovarian cancer Neg Hx Uterine cancer Neg Hx Relation Name Status Comments Brother 1 Alive Brother 2 Alive Father Maternal Grandmother Mother Paternal Grandfather Paternal Grandmother Sister 1 Alive Sister 2 Alive Social History Tobacco Use Types Packs/Day Years Used Date Smoking Tobacco: Never Tobacco Cessation:Counseling Given: Not Answered PHQ-2 Answer Date Recorded PHQ-2 Total Score (If total score is 3 or more points, staff should administer the PHQ-9) 0 03/26/2023 [place] Depression Scale Answer Date Recorded [place] Depression Scale Total 20 09/04/2023 The thought of harming myself has occurred to me . Never 09/04/2023 Comments No Sex and Gender Information Value Date Recorded Sex Assigned at Not on file Legal Sex Female 5:15 AM REGISTERED ASSOCIATE Gender Identity Not on file Sexual Orientation Not on file Obstetrics History Para Term AB IAB SAB Ectopic Multiple Livin g Live Births 1 1 1 1 1 Date Outcome GA Total Labor Labor//3rd Weight Sex Type Anes PTL Hoa A1 A5 Name Clin 024 Term 40w 4d 3.43 kg (7 lb 9 oz) M Vag-S pont Epidur al N Livgissell g Damian Osorio MD Complications:None Delivery Location:[facility] Last Filed Vital Signs Vital Sign Reading [...] 11/02/2023 1:33 PM CDT Plan of Treatment Health Maintenance Due Date Last Done Comments DTaP/Tdap/Td Vaccine (7 - Td or Tdap) 01/17/2018 01/18/2008, 01/16/2003, 01/16/2003, Additional history exists Cervical Cancer Screening 12/09/2023 12/08/2022 Regular Well Visit/Exam 18-64 12/09/2023 12/08/2022 Depression Screening 09/03/2024 09/04/2023, 03/26/20 23 Influenza Vaccine (Season Ended) 2025 07/02/1999, 07/02/1999 Hepatitis B Screening Completed 07/14/1998 , 07/14/1998, 1997, Additional history exists Varicella Vaccines Completed 01/18/2008, 0 01/16/2003, 11/05/1998, Additional history exists HPV Vaccines Completed 03/17/2015, 07/30/2011 Hepatitis C Screening Completed 12/08/2022 Pneumococcal vaccine <65 Aged Out No longer eligible based on patient's age to complete this topic Procedures Procedure Name Priority Date/Time Associated Diagnosis Comments HEPATITIS C ANTIBODY Routine 12/08/2022 6:20 PM CDT Secondary amenorrhea PAP WITH REFLEX TO HIGH RISK HPV Routine 12/08/2022 4:57 PM CDT Screening for malignant neoplasm of cervix from Last 3 Months or Most Recently Relevant to Health Maintenance Results * Hepatitis C antibody (12/08/2022 6:20 PM CDT) Hep C Ab Nonreactive Nonreactive [facility] Comment: Interpretive Data Nonreactive: Antibodies to HCV [...] GEN ERAL ORDERABLES Edited Result - Final [facility] [address] Department [place] [address] * (ABNORMAL) Pap with reflex to High Risk HPV (12/08/2022 4:57 PM CDT) Thin prep (Pap test) 12/08/2022 4:57 PM CDT 12/12/2022 2:16 PM CDT Narrative [facility] - 12/17/2022 4:44 PM CDT EPIC results best viewed via link to PDF [address] [address] Tele: Selene Florez MD - Drain Layer CYTOLOGY REPORT Note to Patients: This report [...] questions and explain the details. Patient Name: SUHA MCKEON [address]: [address] [place] [address] Gender: F : 1995 (Age: 27) Service: Location: Hospital #: [id number] [place] [facility] [place] Taken: 12/08/2022 Reported: 12/17/2022 Physician(s): Osvaldo Osorio M.D. FINAL DIAGNOSIS: SOURCE OF SPECIMEN - ThinPrep Pap w/ reflex HPV: STATEMENT OF ADEQUACY Source: Cervical/Endocervical - Satisfactory for interpretation - Endocervical/Transformation zone component absent or insufficient - Case screened using computer assisted imaging technology and manually re- screened by a pillowcase cutter. GENERAL CATEGORIZATION: - Epithelial cell abnormality INTERPRETATION: - Atypical squamous cells of undetermined significance (ASCUS) - Specimen sent for reflex HPV testing. [facility]/12/17/2022 16:44Examining Pathologist: Carroll Waller M.S., SABINA (ASCP) Report Reviewed and Electronically Signed By Lottie Simpson M.D.Clerical Data Follow A; [id number], 61129 Z12.4 ADDENDA: Addendum Comment Ancillary Testing: HPV [...] recommended by your physician or nurse practitioner. us Gabe Osorio IV, MD LAB CYTOLOGY ORDERABLE S Final Result PATHOLOGY [facility] Laboratory Receiving [address] [place] [address] from Last 3 Months or Most Recently Relevant to Health [place] [id number] [place] [address] Care Teams Dragline Oiler Relationship Specialty Start Date End Date No, Physician PCP - General 11/07/22
[2024-10-30 11:43] VITALS: BP 132/75; PULSE 83; RESP 18; TEMP 36.3; O2SAT 100
[2024-10-31 11:57] LABS: BEDSIDEPREGUCG Negative (Negative); EDUAAPPEAR Cloudy; EDUABILI Negative (Negative); EDUABLOOD Negative (Negative); EDUACOLOR1 Yellow; EDUAGLUCOSE Negative (Negative); EDUAKETONE Negative (Negative); EDUALEUKO Trace (Negative); EDUANITRATE Negative (Negative); EDUAPROTEIN Negative (Negative); EDUAUROBILI 0.2
== END 2024-10-30 12:25 | disposition home or self-care (01) ==
PROVIDERS: Emergency Provider Nurse Practitioner Family; PCP Family Medicine
DX: K21.9 Gastro-esophageal reflux disease without esophagitis (principal); R11.0 Nausea
CPT/HCPCS: 81003; 81025; 99213; G0463